=== PATIENT | male | born 1960 | race Two or more races ===

== ENCOUNTER 2021-01-25 14:05 | Inpatient (IN) | payer MEDICAID, OTHER ==
[~2021-01-25] VITALS: Ht 182.9 cm; Wt 142.0 kg
[2021-01-25] MEDS ORDERED: ALBUTEROL SULF 2.5 MG/0.5ML(0.5%) NEB SOLN NEB ONE (14:45)
[2021-01-25] MEDS ORDERED: methylPREDNISolone SOD SUCC 125 MG/2 ML VL IV ONE (14:45)
[2021-01-25] MEDS ORDERED: IPRATROPIUM BROM 0.5 MG/2.5ML INH SOL NEB ONE (14:45)
[2021-01-25] MEDS ORDERED: cefTRIAXone 1GM/50ML D5W 50 ML IV ONE ×2 (15:00→19:00)
[2021-01-25] MEDS ORDERED: ACETAMINOPHEN 500 MG TAB PO ONE (15:45)
[2021-01-25 16:20] LABS: Basophils # (auto) 0 10 ^3/uL (0-0.2); Basophils % (auto) 0.2 % (0.0-2.0); Eosinophils # (auto) 0 10 ^3/uL (0-0.8); Hematocrit 45.6 % (41.0-53.0); Lymphocytes # (auto) 0.9 10 ^3/uL (0.4-5.4); Mean Corpuscular Hemoglobin 29.9 pg (28.0-32.0); Mean Corpuscular Hgb Conc. 35.1 g/dL (32.0-36.0); Monocytes # (auto) 0.7 10 ^3/uL (0-1.3); Monocytes % (auto) 13.5 % (0.0-12.0); Neutrophils # (auto) 3.2 10 ^3/uL (1.6-8.6); Neutrophils % (auto) 67.3 % (37.0-80.0); Nucleated Red Blood Cells % 0.1 %; Red Blood Cells 5.36 10^6/uL (4.5-5.90); Red Cell Distribution Width 13.6 % (11.8-14.3); White Blood Cell 4.8 10^3/uL (4.4-10.8)
[2021-01-25 17:07] LABS: Albumin 3.1 g/dL (3.4-5.0); Anion Gap 10 (5-15); Blood Urea Nitrogen 22 mg/dL (7-18); Calcium 7.5 mg/dL (8.5-10.1); Carbon Dioxide 20 mmol/L (21-32); Chloride 100 mmol/L (98-107); Glucose 146 mg/dL (74-106); Sodium 130 mmol/L (136-145)
[2021-01-25 17:15] LABS: Alanine Aminotransferase 28 U/L (16-61); Alkaline Phosphatase 54 U/L (45-117); Aspartate Aminotransferase 32 U/L (15-37); BUN/Creatinine Ratio 15.1; Bilirubin, Total 0.6 mg/dL (0.2-1.0); CRP High Sensitivity 5.58 mg/dL (< 0.3); GFR African American 64 mL/min; GFR Non-African American 53 mL/min; Total Protein 6.9 g/dL (6.4-8.2)
[2021-01-25] MEDS ORDERED: MORPHINE SULF INJ 2 MG/ML SYRINGE 1ML IV PRN (18:30)
[2021-01-25] MEDS ORDERED: NITROGLYCERIN 0.4 MG SL TAB SL PRN (18:30)
[2021-01-25] MEDS ORDERED: ACETAMINOPHEN 500 MG TAB PO PRN (19:00)
[2021-01-25] MEDS ORDERED: LACTULOSE 20Gm/30ML SOLN PO PRN (19:00)
[2021-01-25] MEDS ORDERED: DEXTROSE (50%) 50ML SYRG IV PRN (19:00)
[2021-01-25] MEDS ORDERED: REMDESIVIR PER PHARMACY 0 ML IV SCH (19:00)
[2021-01-25] MEDS ORDERED: diphenhdrAMINE HCL 50 MG/1 ML VL IV PRN (19:00)
[2021-01-25] MEDS ORDERED: ONDANSETRON HCL 4 MG/2 ML VIAL IV PRN (19:00)
[2021-01-25] MEDS ORDERED: SODIUM CHLORIDE 0.9% 1,000 ML IV ONE (19:15)
[2021-01-25 20:18] VITALS: BP 161/94
[2021-01-25] MEDS ORDERED: REMDESIVIR 200 MG in NS 210ml LOADING DOSE ADULT IV ONE (20:30)
[2021-01-25] MEDS: ALBUTEROL SULF HFA 90MCG INH 200DOSE IN PRN (22:13)
[2021-01-25] MEDS: IPRATROPIUM BROMIDE HFA AER IN SCH (22:13)
[2021-01-25] MEDS: BUDESONIDE (INHALATION) 180 MCG IH IN SCH (22:13)
[2021-01-25] MEDS: SODIUM CHLOR 0.9% PF (SALINE LOCK) 10ML VIAL/SYR IV SCH (22:15)
[2021-01-25] MEDS: ENOXAPARIN SOD 40 MG/0.4 ML SYRINGE SC SCH (22:27)
[2021-01-25] MEDS: FAMOTIDINE 20 MG TAB PO SCH (22:27)
[2021-01-25] MEDS: FLORASTOR (S. BOULARDII) 250 MG CAP PO SCH (22:27)
[2021-01-25 22:30] VITALS: BP 117/86
[2021-01-25] MEDS: ACCU-CHEK COMFORT CURVE STRIP VI SCH (23:12)
[2021-01-26] VITALS (9 sets, daily range): BP systolic 111–150; BP diastolic 53–78
[2021-01-26 04:11] LABS: Urine Bacteria NONE SEEN /hpf (None Seen); Urine Blood Negative /uL (Negative); Urine Mucus FEW (None Seen); Urine Specific Gravity 1.018 (1.001-1.035); Urine WBC <1 /hpf (0 - 3)
[2021-01-26] MEDS: ALBUTEROL SULF HFA 90MCG INH 200DOSE IN PRN ×2 (06:00→11:21)
[2021-01-26] MEDS: IPRATROPIUM BROMIDE HFA AER IN SCH ×4 (06:00→23:54)
[2021-01-26] MEDS: BUDESONIDE (INHALATION) 180 MCG IH IN SCH ×2 (06:00→22:00)
[2021-01-26] MEDS ORDERED: IVERMECTIN 3 MG TAB PO ONE (07:00)
[2021-01-26] MEDS: SODIUM CHLOR 0.9% PF (SALINE LOCK) 10ML VIAL/SYR IV SCH ×3 (07:10→20:17)
[2021-01-26] MEDS: ACCU-CHEK COMFORT CURVE STRIP VI SCH ×4 (07:11→20:18)
[2021-01-26 07:31] LABS: Basophils # (auto) 0 10 ^3/uL (0-0.2); Basophils % (auto) 0.1 % (0.0-2.0); Eosinophils # (auto) 0 10 ^3/uL (0-0.8); Hemoglobin 15.9 g/dL (13.5-17.5); Lymphocytes # (auto) 0.8 10 ^3/uL (0.4-5.4); Lymphocytes % (auto) 12.7 % (10.0-50.0); Mean Corpuscular Hemoglobin 30.3 pg (28.0-32.0); Mean Corpuscular Hgb Conc. 35.5 g/dL (32.0-36.0); Mean Corpuscular Volume 85.4 fL (80.0-100.0); Monocytes # (auto) 0.8 10 ^3/uL (0-1.3); Monocytes % (auto) 12.8 % (0.0-12.0); Neutrophils # (auto) 4.6 10 ^3/uL (1.6-8.6); Neutrophils % (auto) 74.4 % (37.0-80.0); Nucleated Red Blood Cells % 0.1 %; Red Blood Cells 5.27 10^6/uL (4.5-5.90); Red Cell Distribution Width 13.5 % (11.8-14.3); White Blood Cell 6.2 10^3/uL (4.4-10.8)
[2021-01-26 07:52] LABS: Potassium 4.5 mmol/L (3.5-5.1)
[2021-01-26 08:02] LABS: BUN/Creatinine Ratio 16.5; Bilirubin, Total 0.4 mg/dL (0.2-1.0); Calcium 8.2 mg/dL (8.5-10.1); Total Protein 6.8 g/dL (6.4-8.2)
[2021-01-26] MEDS: cefTRIAXone 1GM/50ML D5W 50 ML IV SCH ×2 (10:55→12:07)
[2021-01-26] MEDS: DexAMETHasone SOD PHOS 10MG/1ML VIAL INJ IV SCH (10:55)
[2021-01-26] MEDS: AZITHROMYCIN 500MG/ 250ML 250 ML IV SCH (10:56)
[2021-01-26] MEDS: ZINC SULFATE 220mg CAP or TAB PO SCH (10:57)
[2021-01-26] MEDS: ASCORBIC ACID 1,000 MG TAB PO SCH (10:57)
[2021-01-26] MEDS: FLORASTOR (S. BOULARDII) 250 MG CAP PO SCH ×2 (10:57→20:17)
[2021-01-26] MEDS: FAMOTIDINE 20 MG TAB PO SCH ×2 (10:57→20:18)
[2021-01-26] MEDS: ENOXAPARIN SOD 40 MG/0.4 ML SYRINGE SC SCH ×2 (10:58→20:18)
[2021-01-26] MEDS: CHOLECALCIFEROL (VITD3) 2,000 UNIT CAP/TAB PO SCH (10:58)
[2021-01-26] MEDS ORDERED: DEXTROSE (50%) 50ML SYRG IV PRN (11:00)
[2021-01-26] MEDS: InsuLIN REG 1unit/0.01ml Soln (100units/ml) SC SCH ×3 (12:25→20:22)
[2021-01-26] MEDS: REMDESIVIR 100mg 100 MG in SODIUM CHL 0.9% 230 ML IV SCH (15:21)
[2021-01-26] MEDS: traMADol HCL 50 MG TAB PO PRN (15:22)
[2021-01-26] MEDS: TEMAZEPAM 15 MG CAP PO PRN (20:18)
[2021-01-26] MEDS: MORPHINE SULF INJ 2 MG/ML SYRINGE 1ML IV PRN (21:36)
[2021-01-27 05:00] VITALS: BP 136/89
[2021-01-27] MEDS: SODIUM CHLOR 0.9% PF (SALINE LOCK) 10ML VIAL/SYR IV SCH ×3 (05:40→22:51)
[2021-01-27] MEDS: MORPHINE SULF INJ 2 MG/ML SYRINGE 1ML IV PRN (05:41)
[2021-01-27 06:33] LABS: Basophils # (auto) 0 10 ^3/uL (0-0.2); Basophils % (auto) 0.2 % (0.0-2.0); Eosinophils # (auto) 0 10 ^3/uL (0-0.8); Hematocrit 44.4 % (41.0-53.0); Hemoglobin 15.8 g/dL (13.5-17.5); Lymphocytes # (auto) 1.2 10 ^3/uL (0.4-5.4); Lymphocytes % (auto) 18.1 % (10.0-50.0); Mean Corpuscular Hemoglobin 30.3 pg (28.0-32.0); Mean Corpuscular Hgb Conc. 35.5 g/dL (32.0-36.0); Mean Corpuscular Volume 85.5 fL (80.0-100.0); Monocytes # (auto) 0.7 10 ^3/uL (0-1.3); Monocytes % (auto) 11.1 % (0.0-12.0); Neutrophils # (auto) 4.6 10 ^3/uL (1.6-8.6); Neutrophils % (auto) 70.6 % (37.0-80.0); Nucleated Red Blood Cells % 0.3 %; Red Blood Cells 5.19 10^6/uL (4.5-5.90); Red Cell Distribution Width 13.7 % (11.8-14.3); White Blood Cell 6.6 10^3/uL (4.4-10.8)
[2021-01-27] MEDS: ACCU-CHEK COMFORT CURVE STRIP VI SCH ×4 (06:33→22:51)
[2021-01-27] MEDS: InsuLIN REG 1unit/0.01ml Soln (100units/ml) SC SCH ×4 (06:34→22:52)
[2021-01-27 06:53] LABS: Potassium 4.2 mmol/L (3.5-5.1)
[2021-01-27 07:00] LABS: Albumin 2.8 g/dL (3.4-5.0); BUN/Creatinine Ratio 17.3; Bilirubin, Total 0.6 mg/dL (0.2-1.0); Calcium 7.8 mg/dL (8.5-10.1); Total Protein 6.9 g/dL (6.4-8.2)
[2021-01-27] MEDS: IPRATROPIUM BROMIDE HFA AER IN SCH ×4 (07:03→23:02)
[2021-01-27] MEDS: BUDESONIDE (INHALATION) 180 MCG IH IN SCH ×2 (07:03→23:00)
[2021-01-27] MEDS: ALBUTEROL SULF HFA 90MCG INH 200DOSE IN PRN ×3 (07:03→23:00)
[2021-01-27 08:00] VITALS: BP 141/69
[2021-01-27] MEDS: cefTRIAXone 1GM/50ML D5W 50 ML IV SCH (09:20)
[2021-01-27] MEDS: DexAMETHasone SOD PHOS 10MG/1ML VIAL INJ IV SCH (11:34)
[2021-01-27] MEDS: AZITHROMYCIN 500MG/ 250ML 250 ML IV SCH (11:34)
[2021-01-27] MEDS: ZINC SULFATE 220mg CAP or TAB PO SCH (11:34)
[2021-01-27] MEDS: CHOLECALCIFEROL (VITD3) 2,000 UNIT CAP/TAB PO SCH (11:35)
[2021-01-27] MEDS: ASCORBIC ACID 1,000 MG TAB PO SCH (11:35)
[2021-01-27] MEDS: FAMOTIDINE 20 MG TAB PO SCH ×2 (11:35→22:51)
[2021-01-27] MEDS: FLORASTOR (S. BOULARDII) 250 MG CAP PO SCH ×2 (11:35→22:51)
[2021-01-27] MEDS: ENOXAPARIN SOD 40 MG/0.4 ML SYRINGE SC SCH ×2 (11:35→22:51)
[2021-01-27 12:00] VITALS: BP 124/68
[2021-01-27] MEDS: REMDESIVIR 100mg 100 MG in SODIUM CHL 0.9% 230 ML IV SCH (15:08)
[2021-01-27 16:00] VITALS: BP 124/75
[2021-01-27 22:00] VITALS: BP 132/86
[2021-01-28 05:00] VITALS: BP 128/50
[2021-01-28] MEDS: IPRATROPIUM BROMIDE HFA AER IN SCH ×4 (06:17→23:43)
[2021-01-28] MEDS: ALBUTEROL SULF HFA 90MCG INH 200DOSE IN PRN ×3 (06:17→23:44)
[2021-01-28] MEDS: BUDESONIDE (INHALATION) 180 MCG IH IN SCH ×2 (06:17→23:43)
[2021-01-28 06:26] LABS: Basophils # (auto) 0 10 ^3/uL (0-0.2); Basophils % (auto) 0.2 % (0.0-2.0); Eosinophils # (auto) 0 10 ^3/uL (0-0.8); Hematocrit 45.7 % (41.0-53.0); Lymphocytes # (auto) 0.9 10 ^3/uL (0.4-5.4); Lymphocytes % (auto) 20.2 % (10.0-50.0); Mean Corpuscular Hemoglobin 29.9 pg (28.0-32.0); Mean Corpuscular Volume 85.6 fL (80.0-100.0); Monocytes # (auto) 0.5 10 ^3/uL (0-1.3); Monocytes % (auto) 11.9 % (0.0-12.0); Neutrophils % (auto) 67.7 % (37.0-80.0); Nucleated Red Blood Cells % 0.2 %; Red Blood Cells 5.34 10^6/uL (4.5-5.90); Red Cell Distribution Width 13.7 % (11.8-14.3); White Blood Cell 4.4 10^3/uL (4.4-10.8)
[2021-01-28] MEDS: SODIUM CHLOR 0.9% PF (SALINE LOCK) 10ML VIAL/SYR IV SCH ×3 (06:30→22:18)
[2021-01-28] MEDS: ACCU-CHEK COMFORT CURVE STRIP VI SCH ×4 (06:30→22:20)
[2021-01-28] MEDS: InsuLIN REG 1unit/0.01ml Soln (100units/ml) SC SCH ×4 (06:41→22:24)
[2021-01-28 06:44] LABS: Potassium 4.1 mmol/L (3.5-5.1)
[2021-01-28 06:52] LABS: Albumin 2.6 g/dL (3.4-5.0); BUN/Creatinine Ratio 19.8; Bilirubin, Total 0.4 mg/dL (0.2-1.0); Calcium 8.1 mg/dL (8.5-10.1); Total Protein 6.6 g/dL (6.4-8.2)
[2021-01-28] MEDS: cefTRIAXone 1GM/50ML D5W 50 ML IV SCH (08:49)
[2021-01-28 09:00] VITALS: BP 120/85
[2021-01-28] MEDS: FAMOTIDINE 20 MG TAB PO SCH ×2 (10:05→22:19)
[2021-01-28] MEDS: ZINC SULFATE 220mg CAP or TAB PO SCH (10:05)
[2021-01-28] MEDS: AZITHROMYCIN 500MG/ 250ML 250 ML IV SCH (10:05)
[2021-01-28] MEDS: CHOLECALCIFEROL (VITD3) 2,000 UNIT CAP/TAB PO SCH (10:05)
[2021-01-28] MEDS: FLORASTOR (S. BOULARDII) 250 MG CAP PO SCH ×2 (10:06→22:19)
[2021-01-28] MEDS: DexAMETHasone SOD PHOS 10MG/1ML VIAL INJ IV SCH (10:06)
[2021-01-28] MEDS: ENOXAPARIN SOD 40 MG/0.4 ML SYRINGE SC SCH ×2 (10:06→22:20)
[2021-01-28] MEDS: ASCORBIC ACID 1,000 MG TAB PO SCH (12:28)
[2021-01-28 13:00] VITALS: BP 137/81
[2021-01-28] MEDS: REMDESIVIR 100mg 100 MG in SODIUM CHL 0.9% 230 ML IV SCH (14:55)
[2021-01-28 17:00] VITALS: BP 147/82
[2021-01-28 22:00] VITALS: BP 158/90
[2021-01-29 01:56] VITALS: BP 158/90
[2021-01-29 05:27] VITALS: BP 154/87
[2021-01-29] MEDS: SODIUM CHLOR 0.9% PF (SALINE LOCK) 10ML VIAL/SYR IV SCH ×3 (06:31→21:53)
[2021-01-29] MEDS: ACCU-CHEK COMFORT CURVE STRIP VI SCH ×4 (06:31→21:54)
[2021-01-29] MEDS: InsuLIN REG 1unit/0.01ml Soln (100units/ml) SC SCH ×4 (06:35→21:54)
[2021-01-29 07:08] LABS: Basophils # (auto) 0 10 ^3/uL (0-0.2); Basophils % (auto) 0.1 % (0.0-2.0); Eosinophils # (auto) 0 10 ^3/uL (0-0.8); Eosinophils % (auto) 0.1 % (0.0-7.0); Hematocrit 45.8 % (41.0-53.0); Hemoglobin 15.9 g/dL (13.5-17.5); Lymphocytes % (auto) 11.4 % (10.0-50.0); Mean Corpuscular Hemoglobin 29.8 pg (28.0-32.0); Mean Corpuscular Hgb Conc. 34.9 g/dL (32.0-36.0); Mean Corpuscular Volume 85.4 fL (80.0-100.0); Monocytes # (auto) 0.8 10 ^3/uL (0-1.3); Monocytes % (auto) 9.6 % (0.0-12.0); Neutrophils # (auto) 6.9 10 ^3/uL (1.6-8.6); Neutrophils % (auto) 78.8 % (37.0-80.0); Nucleated Red Blood Cells % 0.1 %; Red Blood Cells 5.36 10^6/uL (4.5-5.90); Red Cell Distribution Width 13.3 % (11.8-14.3); White Blood Cell 8.7 10^3/uL (4.4-10.8)
[2021-01-29 07:23] LABS: Calcium 8.6 mg/dL (8.5-10.1); Potassium 4.2 mmol/L (3.5-5.1)
[2021-01-29 07:30] LABS: Albumin 2.6 g/dL (3.4-5.0); BUN/Creatinine Ratio 22.4; Bilirubin, Total 0.4 mg/dL (0.2-1.0); Total Protein 6.8 g/dL (6.4-8.2)
[2021-01-29] MEDS: BUDESONIDE (INHALATION) 180 MCG IH IN SCH ×2 (08:18→22:00)
[2021-01-29] MEDS: IPRATROPIUM BROMIDE HFA AER IN SCH ×3 (08:18→22:00)
[2021-01-29] MEDS: ALBUTEROL SULF HFA 90MCG INH 200DOSE IN PRN ×2 (08:19→22:45)
[2021-01-29 09:00] VITALS: BP 113/69
[2021-01-29] MEDS: FAMOTIDINE 20 MG TAB PO SCH ×2 (10:39→21:53)
[2021-01-29] MEDS: cefTRIAXone 1GM/50ML D5W 50 ML IV SCH (10:39)
[2021-01-29] MEDS: ZINC SULFATE 220mg CAP or TAB PO SCH (10:39)
[2021-01-29] MEDS: FLORASTOR (S. BOULARDII) 250 MG CAP PO SCH ×2 (10:39→21:53)
[2021-01-29] MEDS: AZITHROMYCIN 500MG/ 250ML 250 ML IV SCH (10:39)
[2021-01-29] MEDS: DexAMETHasone SOD PHOS 10MG/1ML VIAL INJ IV SCH (10:39)
[2021-01-29] MEDS: CHOLECALCIFEROL (VITD3) 2,000 UNIT CAP/TAB PO SCH (10:40)
[2021-01-29] MEDS: ASCORBIC ACID 1,000 MG TAB PO SCH (10:40)
[2021-01-29] MEDS: ENOXAPARIN SOD 40 MG/0.4 ML SYRINGE SC SCH ×2 (10:40→21:54)
[2021-01-29] MEDS ORDERED: ASCO10003 PO (11:54)
[2021-01-29] MEDS ORDERED: DEXA4TAB90 PO (11:54)
[2021-01-29] MEDS ORDERED: CHOL1CAP47 PO (11:54)
[2021-01-29] MEDS ORDERED: LEVO750T64 PO (11:54)
[2021-01-29 13:00] VITALS: BP 128/82
[2021-01-29] MEDS: REMDESIVIR 100mg 100 MG in SODIUM CHL 0.9% 230 ML IV SCH (15:55)
[2021-01-29 17:00] VITALS: BP 124/81
[2021-01-29 22:00] VITALS: BP 132/84
[2021-01-30 05:00] VITALS: BP 141/77
[2021-01-30] MEDS: SODIUM CHLOR 0.9% PF (SALINE LOCK) 10ML VIAL/SYR IV SCH ×3 (06:39→22:11)
[2021-01-30] MEDS: ACCU-CHEK COMFORT CURVE STRIP VI SCH ×4 (06:39→22:12)
[2021-01-30] MEDS: InsuLIN REG 1unit/0.01ml Soln (100units/ml) SC SCH ×4 (06:40→22:09)
[2021-01-30] MEDS: BUDESONIDE (INHALATION) 180 MCG IH IN SCH ×2 (07:25→23:15)
[2021-01-30] MEDS: IPRATROPIUM BROMIDE HFA AER IN SCH ×3 (07:26→23:15)
[2021-01-30 09:00] VITALS: BP 162/81
[2021-01-30] MEDS: DexAMETHasone SOD PHOS 10MG/1ML VIAL INJ IV SCH (10:59)
[2021-01-30] MEDS: FLORASTOR (S. BOULARDII) 250 MG CAP PO SCH ×2 (11:00→22:11)
[2021-01-30] MEDS: FAMOTIDINE 20 MG TAB PO SCH ×2 (11:00→22:11)
[2021-01-30] MEDS: CHOLECALCIFEROL (VITD3) 2,000 UNIT CAP/TAB PO SCH (11:00)
[2021-01-30] MEDS: ZINC SULFATE 220mg CAP or TAB PO SCH (11:00)
[2021-01-30] MEDS: ASCORBIC ACID 1,000 MG TAB PO SCH (11:00)
[2021-01-30] MEDS: ENOXAPARIN SOD 40 MG/0.4 ML SYRINGE SC SCH ×2 (11:00→22:12)
[2021-01-30 12:24] VITALS: BP 150/95
[2021-01-30 17:00] VITALS: BP 124/78
[2021-01-30 22:12] VITALS: BP 157/82
[2021-01-30] MEDS: ALBUTEROL SULF HFA 90MCG INH 200DOSE IN PRN (23:15)
[2021-01-31 05:29] VITALS: BP 152/74
[2021-01-31] MEDS: SODIUM CHLOR 0.9% PF (SALINE LOCK) 10ML VIAL/SYR IV SCH ×3 (06:36→21:31)
[2021-01-31] MEDS: ACCU-CHEK COMFORT CURVE STRIP VI SCH ×5 (06:36→21:29)
[2021-01-31] MEDS: InsuLIN REG 1unit/0.01ml Soln (100units/ml) SC SCH ×5 (06:38→21:26)
[2021-01-31] MEDS: ALBUTEROL SULF HFA 90MCG INH 200DOSE IN PRN ×2 (08:03→20:59)
[2021-01-31] MEDS: BUDESONIDE (INHALATION) 180 MCG IH IN SCH ×2 (08:03→19:48)
[2021-01-31] MEDS: IPRATROPIUM BROMIDE HFA AER IN SCH ×4 (08:03→23:07)
[2021-01-31 09:00] VITALS: BP 140/90
[2021-01-31] MEDS: FLORASTOR (S. BOULARDII) 250 MG CAP PO SCH ×2 (10:11→21:30)
[2021-01-31] MEDS: ZINC SULFATE 220mg CAP or TAB PO SCH (10:11)
[2021-01-31] MEDS: CHOLECALCIFEROL (VITD3) 2,000 UNIT CAP/TAB PO SCH (10:11)
[2021-01-31] MEDS: ASCORBIC ACID 1,000 MG TAB PO SCH (10:11)
[2021-01-31] MEDS: ENOXAPARIN SOD 40 MG/0.4 ML SYRINGE SC SCH ×2 (10:11→21:29)
[2021-01-31] MEDS: FAMOTIDINE 20 MG TAB PO SCH ×2 (10:11→21:30)
[2021-01-31] MEDS: DexAMETHasone SOD PHOS 10MG/1ML VIAL INJ IV SCH (10:13)
[2021-01-31 12:56] VITALS: BP 140/83
[2021-01-31 17:00] VITALS: BP 123/88
[2021-01-31] MEDS: TEMAZEPAM 15 MG CAP PO PRN (19:29)
[2021-01-31 21:16] VITALS: BP 123/88
[2021-01-31] MEDS: traMADol HCL 50 MG TAB PO PRN (21:31)
[2021-01-31 22:26] VITALS: BP 140/74
[2021-02-01] MEDS: InsuLIN REG 1unit/0.01ml Soln (100units/ml) SC SCH ×4 (05:10→21:51)
[2021-02-01] MEDS: ACCU-CHEK COMFORT CURVE STRIP VI SCH ×4 (05:11→21:37)
[2021-02-01] MEDS: SODIUM CHLOR 0.9% PF (SALINE LOCK) 10ML VIAL/SYR IV SCH ×3 (05:12→21:35)
[2021-02-01 05:18] VITALS: BP 157/77
[2021-02-01] MEDS: IPRATROPIUM BROMIDE HFA AER IN SCH ×4 (07:50→22:00)
[2021-02-01] MEDS: BUDESONIDE (INHALATION) 180 MCG IH IN SCH ×2 (07:50→20:41)
[2021-02-01] MEDS: ALBUTEROL SULF HFA 90MCG INH 200DOSE IN PRN ×2 (07:50→20:41)
[2021-02-01 09:00] VITALS: BP 144/96
[2021-02-01] MEDS: DexAMETHasone SOD PHOS 10MG/1ML VIAL INJ IV SCH (10:02)
[2021-02-01] MEDS: ENOXAPARIN SOD 40 MG/0.4 ML SYRINGE SC SCH ×2 (10:03→21:36)
[2021-02-01] MEDS: CHOLECALCIFEROL (VITD3) 2,000 UNIT CAP/TAB PO SCH (10:03)
[2021-02-01] MEDS: ASCORBIC ACID 1,000 MG TAB PO SCH (10:03)
[2021-02-01] MEDS: FAMOTIDINE 20 MG TAB PO SCH ×2 (10:03→21:36)
[2021-02-01] MEDS: FLORASTOR (S. BOULARDII) 250 MG CAP PO SCH ×2 (10:03→21:36)
[2021-02-01] MEDS: ZINC SULFATE 220mg CAP or TAB PO SCH (10:03)
[2021-02-01 17:00] VITALS: BP 130/76
[2021-02-01] MEDS: MORPHINE SULF INJ 2 MG/ML SYRINGE 1ML IV PRN (21:17)
[2021-02-01 22:00] VITALS: BP 140/103
[2021-02-02] MEDS: TEMAZEPAM 15 MG CAP PO PRN ×2 (01:18→23:19)
[2021-02-02] MEDS: MORPHINE SULF INJ 2 MG/ML SYRINGE 1ML IV PRN ×2 (03:51→20:17)
[2021-02-02 05:00] VITALS: BP 140/80
[2021-02-02] MEDS: SODIUM CHLOR 0.9% PF (SALINE LOCK) 10ML VIAL/SYR IV SCH ×3 (06:17→21:37)
[2021-02-02] MEDS: ACCU-CHEK COMFORT CURVE STRIP VI SCH ×4 (06:18→21:38)
[2021-02-02] MEDS: InsuLIN REG 1unit/0.01ml Soln (100units/ml) SC SCH ×4 (06:37→21:50)
[2021-02-02] MEDS: IPRATROPIUM BROMIDE HFA AER IN SCH ×4 (07:45→22:54)
[2021-02-02] MEDS: BUDESONIDE (INHALATION) 180 MCG IH IN SCH ×2 (07:45→19:42)
[2021-02-02] MEDS: metFORMIN HYDROCHLORIDE 500 MG TAB PO SCH ×2 (08:00→18:00)
[2021-02-02 09:00] VITALS: BP 132/72
[2021-02-02] MEDS: DexAMETHasone SOD PHOS 10MG/1ML VIAL INJ IV SCH (09:49)
[2021-02-02] MEDS: ZINC SULFATE 220mg CAP or TAB PO SCH (09:49)
[2021-02-02] MEDS: ASCORBIC ACID 1,000 MG TAB PO SCH (09:50)
[2021-02-02] MEDS: ENOXAPARIN SOD 40 MG/0.4 ML SYRINGE SC SCH ×2 (09:50→21:38)
[2021-02-02] MEDS: CHOLECALCIFEROL (VITD3) 2,000 UNIT CAP/TAB PO SCH (09:50)
[2021-02-02] MEDS: LOSARTAN POTASSIUM 25 MG TAB PO SCH (09:50)
[2021-02-02] MEDS: FAMOTIDINE 20 MG TAB PO SCH ×2 (09:50→21:37)
[2021-02-02 13:00] VITALS: BP 114/58
[2021-02-02 17:00] VITALS: BP 135/88
[2021-02-02] MEDS: ALBUTEROL SULF HFA 90MCG INH 200DOSE IN PRN (19:42)
[2021-02-02 22:00] VITALS: BP 140/79
[2021-02-02] MEDS ORDERED: DEXTROSE (50%) 50ML SYRG IV PRN (23:45)
[2021-02-02] MEDS: INSULIN LANTUS (GLARGINE) 1 /0.01ml (100units/ml) SC SCH (23:58)
[2021-02-03] MEDS: SODIUM CHLOR 0.9% PF (SALINE LOCK) 10ML VIAL/SYR IV SCH ×3 (05:26→21:27)
[2021-02-03] MEDS: ACCU-CHEK COMFORT CURVE STRIP VI SCH ×4 (06:12→21:29)
[2021-02-03] MEDS: InsuLIN REG 1unit/0.01ml Soln (100units/ml) SC SCH ×4 (06:17→21:28)
[2021-02-03] MEDS ORDERED: metFORMIN HYDROCHLORIDE 500 MG TAB PO SCH (08:00)
[2021-02-03] MEDS: BUDESONIDE (INHALATION) 180 MCG IH IN SCH ×2 (08:40→22:46)
[2021-02-03] MEDS: IPRATROPIUM BROMIDE HFA AER IN SCH ×4 (08:40→22:46)
[2021-02-03] MEDS: ALBUTEROL SULF HFA 90MCG INH 200DOSE IN PRN ×2 (08:40→22:46)
[2021-02-03 09:00] VITALS: BP 155/85
[2021-02-03] MEDS: LOSARTAN POTASSIUM 25 MG TAB PO SCH (09:38)
[2021-02-03] MEDS: ZINC SULFATE 220mg CAP or TAB PO SCH (09:38)
[2021-02-03] MEDS: ASCORBIC ACID 1,000 MG TAB PO SCH (09:38)
[2021-02-03] MEDS: FAMOTIDINE 20 MG TAB PO SCH ×2 (09:38→21:27)
[2021-02-03] MEDS: DexAMETHasone SOD PHOS 10MG/1ML VIAL INJ IV SCH (09:38)
[2021-02-03] MEDS: ENOXAPARIN SOD 40 MG/0.4 ML SYRINGE SC SCH ×2 (09:39→21:29)
[2021-02-03] MEDS: CHOLECALCIFEROL (VITD3) 2,000 UNIT CAP/TAB PO SCH (09:39)
[2021-02-03] MEDS: INSULIN LANTUS (GLARGINE) 1 /0.01ml (100units/ml) SC SCH ×2 (09:41→21:28)
[2021-02-03 13:00] VITALS: BP 139/74
[2021-02-03 17:00] VITALS: BP 119/70
[2021-02-03 21:00] VITALS: BP 142/86
[2021-02-03] MEDS: MORPHINE SULF INJ 2 MG/ML SYRINGE 1ML IV PRN (21:30)
[2021-02-03] MEDS: TEMAZEPAM 15 MG CAP PO PRN (22:29)
[2021-02-03 23:52] VITALS: BP 119/70
[2021-02-04 05:00] VITALS: BP 143/83
[2021-02-04] MEDS: ACCU-CHEK COMFORT CURVE STRIP VI SCH ×4 (06:35→22:00)
[2021-02-04] MEDS: SODIUM CHLOR 0.9% PF (SALINE LOCK) 10ML VIAL/SYR IV SCH ×3 (06:35→21:56)
[2021-02-04] MEDS: InsuLIN REG 1unit/0.01ml Soln (100units/ml) SC SCH ×4 (06:46→21:58)
[2021-02-04 08:58] VITALS: BP 134/89
[2021-02-04] MEDS: CHOLECALCIFEROL (VITD3) 2,000 UNIT CAP/TAB PO SCH (09:09)
[2021-02-04] MEDS: FAMOTIDINE 20 MG TAB PO SCH ×2 (09:09→21:57)
[2021-02-04] MEDS: ASCORBIC ACID 1,000 MG TAB PO SCH (09:09)
[2021-02-04] MEDS: ZINC SULFATE 220mg CAP or TAB PO SCH (09:09)
[2021-02-04] MEDS: DexAMETHasone SOD PHOS 10MG/1ML VIAL INJ IV SCH (09:09)
[2021-02-04] MEDS: LOSARTAN POTASSIUM 25 MG TAB PO SCH (09:09)
[2021-02-04] MEDS: ENOXAPARIN SOD 40 MG/0.4 ML SYRINGE SC SCH ×2 (09:10→21:59)
[2021-02-04] MEDS: INSULIN LANTUS (GLARGINE) 1 /0.01ml (100units/ml) SC SCH ×2 (09:40→21:59)
[2021-02-04] MEDS: IPRATROPIUM BROMIDE HFA AER IN SCH ×4 (11:51→23:47)
[2021-02-04] MEDS: BUDESONIDE (INHALATION) 180 MCG IH IN SCH ×2 (11:51→20:00)
[2021-02-04 12:59] VITALS: BP 130/78
[2021-02-04 17:00] VITALS: BP 156/84
[2021-02-04] MEDS: ALBUTEROL SULF HFA 90MCG INH 200DOSE IN PRN (20:05)
[2021-02-04 22:00] VITALS: BP 119/75
[2021-02-04] MEDS: MORPHINE SULF INJ 2 MG/ML SYRINGE 1ML IV PRN (22:00)
[2021-02-04] MEDS: TEMAZEPAM 15 MG CAP PO PRN (22:00)
[2021-02-05 05:00] VITALS: BP 111/72
[2021-02-05] MEDS: SODIUM CHLOR 0.9% PF (SALINE LOCK) 10ML VIAL/SYR IV SCH ×2 (06:31→15:59)
[2021-02-05] MEDS: ACCU-CHEK COMFORT CURVE STRIP VI SCH ×3 (06:31→17:38)
[2021-02-05] MEDS: InsuLIN REG 1unit/0.01ml Soln (100units/ml) SC SCH ×3 (06:32→17:39)
[2021-02-05] MEDS: ALBUTEROL SULF HFA 90MCG INH 200DOSE IN PRN ×2 (07:39→19:03)
[2021-02-05] MEDS: BUDESONIDE (INHALATION) 180 MCG IH IN SCH ×2 (07:40→19:03)
[2021-02-05 08:57] VITALS: BP 129/68
[2021-02-05] MEDS: IPRATROPIUM BROMIDE HFA AER IN SCH ×3 (09:52→19:03)
[2021-02-05] MEDS: ZINC SULFATE 220mg CAP or TAB PO SCH (10:34)
[2021-02-05] MEDS: LOSARTAN POTASSIUM 25 MG TAB PO SCH (10:34)
[2021-02-05] MEDS: FAMOTIDINE 20 MG TAB PO SCH (10:34)
[2021-02-05] MEDS: ASCORBIC ACID 1,000 MG TAB PO SCH (10:35)
[2021-02-05] MEDS: ENOXAPARIN SOD 40 MG/0.4 ML SYRINGE SC SCH (10:36)
[2021-02-05] MEDS: CHOLECALCIFEROL (VITD3) 2,000 UNIT CAP/TAB PO SCH (10:36)
[2021-02-05] MEDS: INSULIN LANTUS (GLARGINE) 1 /0.01ml (100units/ml) SC SCH (10:58)
[2021-02-05 13:00] VITALS: BP 137/81
[2021-02-05 17:00] VITALS: BP 139/72
== END 2021-02-05 19:13 | DRG 137 ==
LOC: ER 14:05 → EDBD 14:05 → TELE 18:26 → TELE-EAST 22:33 → EAST 02-01 14:22
PROVIDERS: ADMIT Internal Medicine; ATTEND Internal Medicine Pulmonary Disease
PROC: XW033E5 Introduction of Remdesivir Anti-infective into Peripheral Vein, Percutaneous Approach, New Technology Group 5 (ICD-10-PCS; 2021-01-25)
PROC: XW13325 Transfusion of Convalescent Plasma (Nonautologous) into Peripheral Vein, Percutaneous Approach, New Technology Group 5 (ICD-10-PCS; principal; 2021-01-26)
DX: U07.1 COVID-19 (principal); J96.01 Acute respiratory failure with hypoxia; J12.82 Pneumonia due to coronavirus disease 2019; N17.9 Acute kidney failure, unspecified; E87.1 Hypo-osmolality and hyponatremia; Z68.41 Body mass index [BMI] 40.0-44.9, adult; F12.90 Cannabis use, unspecified, uncomplicated; E66.01 Morbid (severe) obesity due to excess calories; R73.9 Hyperglycemia, unspecified; Z90.49 Acquired absence of other specified parts of digestive tract; Z79.899 Other long term (current) drug therapy
CPT/HCPCS: 36415; 36600; 71045; 80053; 81001; 82728; 82805; 82962; 83036; 83880; 84484; 85025; 85379; 86141; 86850; 86900; 86901; 87426; 93970; 94640; 96365; 96367; 96375; 97110; 97163; G0378; J0696; J1100; J1815; J2405

== ENCOUNTER 2021-02-08 12:08 | Inpatient (IN) | payer MEDICAID ==
[~2021-02-08] VITALS: Ht 185.4 cm; Wt 149.7 kg
[~2021-02-08 12:08] MED LIST: ASCO10003 PO; CHOL1CAP47 PO; DEXA4TAB90 PO; LEVO750T64 PO
[2021-02-08 13:58] LABS: Basophils # (auto) 0.1 10 ^3/uL (0-0.2); Basophils % (auto) 0.7 % (0.0-2.0); Eosinophils # (auto) 0.1 10 ^3/uL (0-0.8); Eosinophils % (auto) 1.2 % (0.0-7.0); Hematocrit 42.4 % (41.0-53.0); Hemoglobin 14.5 g/dL (13.5-17.5); Lymphocytes % (auto) 22.6 % (10.0-50.0); Mean Corpuscular Hemoglobin 29.7 pg (28.0-32.0); Mean Corpuscular Hgb Conc. 34.3 g/dL (32.0-36.0); Mean Corpuscular Volume 86.5 fL (80.0-100.0); Monocytes # (auto) 0.7 10 ^3/uL (0-1.3); Monocytes % (auto) 8.4 % (0.0-12.0); Neutrophils # (auto) 5.9 10 ^3/uL (1.6-8.6); Neutrophils % (auto) 67.1 % (37.0-80.0); Red Cell Distribution Width 13.8 % (11.8-14.3); White Blood Cell 8.8 10^3/uL (4.4-10.8)
[2021-02-08 14:39] LABS: Albumin 2.8 g/dL (3.4-5.0); BUN/Creatinine Ratio 23.7; Calcium 7.9 mg/dL (8.5-10.1); Potassium 4.5 mmol/L (3.5-5.1)
[2021-02-08 14:42] LABS: Bilirubin, Total 0.4 mg/dL (0.2-1.0); Total Protein 6.4 g/dL (6.4-8.2)
[2021-02-08] MEDS ORDERED: SODIUM CHLORIDE 0.9% 1,000 ML IV ONE (17:00)
[2021-02-08 17:12] LABS: Magnesium 2.1 mg/dL (1.6-2.6)
[2021-02-08] MEDS ORDERED: cefTRIAXone 1GM/50ML D5W 50 ML IV ONE (17:30)
[2021-02-08] MEDS ORDERED: FUROSEMIDE 40 MG/4 ML VIAL IV ONE (17:30)
[2021-02-08] MEDS ORDERED: SPIRONOLACTONE 25 MG TAB PO ONE (17:30)
[2021-02-08 18:16] LABS: INR 0.98 (0.9-1.15); Partial Thromboplastin Time 24.2 sec (23.6-33.0)
[2021-02-08] MEDS ORDERED: ALBUTEROL SULF 2.5 MG/0.5ML(0.5%) NEB SOLN ONE (19:14)
[2021-02-08] MEDS ORDERED: IPRATROPIUM BROM 0.5 MG/2.5ML INH SOL ONE (19:14)
[2021-02-08] MEDS ORDERED: ALBUTEROL SULF 2.5 MG/0.5ML(0.5%) NEB SOLN NEB ONE (19:15)
[2021-02-08] MEDS ORDERED: ONDANSETRON HCL 4 MG/2 ML VIAL IV PRN (19:15)
[2021-02-08] MEDS ORDERED: MORPHINE SULFATE INJECTION 2 MG/2 ML SYRG IV PRN ×2 (19:15)
[2021-02-08] MEDS ORDERED: ACETAMINOPHEN 500 MG TAB PO PRN (19:15)
[2021-02-08] MEDS ORDERED: HYDROcodone-ACET 5/325MG TAB PO PRN (19:15)
[2021-02-08] MEDS ORDERED: IPRATROPIUM BROM 0.5 MG/2.5ML INH SOL NEB ONE (19:15)
[2021-02-08] MEDS ORDERED: NITROGLYCERIN 0.4 MG SL TAB SL PRN (19:15)
[2021-02-08] MEDS ORDERED: LIDOCAINE 5% TOPICAL PATCH TOP ONE (22:30)
[2021-02-08] MEDS: ASCORBIC ACID 500 MG TAB PO SCH (23:44)
[2021-02-08 23:49] VITALS: BP 132/78
[2021-02-08] MEDS: methylPREDNISolone SOD SUCC 125 MG/2 ML VL IV SCH (23:56)
[2021-02-09] MEDS: PANTOPRAZOLE 40 MG TAB PO SCH (09:42)
[2021-02-09] MEDS: ZINC SULFATE 220mg CAP or TAB PO SCH (09:42)
[2021-02-09] MEDS: ASCORBIC ACID 500 MG TAB PO SCH ×2 (09:42→21:36)
[2021-02-09] MEDS: ENOXAPARIN SOD 40 MG/0.4 ML SYRINGE SC SCH (09:42)
[2021-02-09] MEDS: methylPREDNISolone SOD SUCC 125 MG/2 ML VL IV SCH ×2 (09:42→21:36)
[2021-02-09] MEDS: CHOLECALCIFEROL (VITD3) 2,000 UNIT CAP/TAB PO SCH (09:42)
[2021-02-09] MEDS: IPRATROPIUM BROM 0.5 MG/2.5ML INH SOL NEB SCH ×3 (14:51→18:52)
[2021-02-09] MEDS: ALBUTEROL SULF 2.5 MG/0.5ML(0.5%) NEB SOLN NEB SCH ×3 (14:51→18:52)
[2021-02-09 16:00] VITALS: BP 153/76
[2021-02-09 16:56] VITALS: BP 153/76
[2021-02-09 22:00] VITALS: BP 135/78
[2021-02-10 05:00] VITALS: BP 130/72
[2021-02-10] MEDS: IPRATROPIUM BROM 0.5 MG/2.5ML INH SOL NEB SCH ×3 (07:03→19:22)
[2021-02-10] MEDS: ALBUTEROL SULF 2.5 MG/0.5ML(0.5%) NEB SOLN NEB SCH ×3 (07:03→19:22)
[2021-02-10 09:00] VITALS: BP 134/88
[2021-02-10] MEDS: ZINC SULFATE 220mg CAP or TAB PO SCH (09:51)
[2021-02-10] MEDS: PANTOPRAZOLE 40 MG TAB PO SCH (09:51)
[2021-02-10] MEDS: ASCORBIC ACID 500 MG TAB PO SCH ×2 (09:52→22:23)
[2021-02-10] MEDS: DOXYCYCLINE 100 MG TAB/CAP PO SCH ×2 (09:52→22:23)
[2021-02-10] MEDS: CHOLECALCIFEROL (VITD3) 2,000 UNIT CAP/TAB PO SCH (09:52)
[2021-02-10] MEDS: ENOXAPARIN SOD 40 MG/0.4 ML SYRINGE SC SCH (09:52)
[2021-02-10] MEDS ORDERED: methylPREDNISolone SOD SUCC 40 MG/ML VL IV SCH (10:00)
[2021-02-10] MEDS ORDERED: FUROSEMIDE 20 MG/2 ML VIAL IV ONE (12:45)
[2021-02-10] MEDS ORDERED: POTASSIUM CHL 20 Meq TABLET PO ONE (12:45)
[2021-02-10 13:00] VITALS: BP 150/80
[2021-02-10 17:00] VITALS: BP 134/68
[2021-02-10 22:00] VITALS: BP 138/60
[2021-02-11] VITALS (7 sets, daily range): BP systolic 133–166; BP diastolic 74–99
[2021-02-11] MEDS: IPRATROPIUM BROM 0.5 MG/2.5ML INH SOL NEB SCH ×3 (06:00→19:29)
[2021-02-11] MEDS: ALBUTEROL SULF 2.5 MG/0.5ML(0.5%) NEB SOLN NEB SCH ×3 (06:00→19:29)
[2021-02-11 07:19] LABS: Urine Bacteria NONE SEEN /hpf (None Seen); Urine Blood Negative /uL (Negative); Urine Specific Gravity 1.024 (1.001-1.035); Urine WBC <1 /hpf (0 - 3)
[2021-02-11] MEDS: predniSONE 20 MG TAB PO SCH (08:47)
[2021-02-11] MEDS: PANTOPRAZOLE 40 MG TAB PO SCH (08:48)
[2021-02-11] MEDS: CHOLECALCIFEROL (VITD3) 2,000 UNIT CAP/TAB PO SCH (08:48)
[2021-02-11] MEDS: ASCORBIC ACID 500 MG TAB PO SCH ×2 (08:48→20:53)
[2021-02-11] MEDS: DOXYCYCLINE 100 MG TAB/CAP PO SCH ×2 (08:48→20:52)
[2021-02-11] MEDS: ZINC SULFATE 220mg CAP or TAB PO SCH (08:48)
[2021-02-12 05:00] VITALS: BP 131/79
[2021-02-12] MEDS: IPRATROPIUM BROM 0.5 MG/2.5ML INH SOL NEB SCH (07:11)
[2021-02-12] MEDS: ALBUTEROL SULF 2.5 MG/0.5ML(0.5%) NEB SOLN NEB SCH (07:11)
[2021-02-12 09:00] VITALS: BP 147/89
[2021-02-12] MEDS: CHOLECALCIFEROL (VITD3) 2,000 UNIT CAP/TAB PO SCH (09:25)
[2021-02-12] MEDS: DOXYCYCLINE 100 MG TAB/CAP PO SCH (09:25)
[2021-02-12] MEDS: ASCORBIC ACID 500 MG TAB PO SCH (09:26)
[2021-02-12] MEDS: predniSONE 20 MG TAB PO SCH (09:26)
[2021-02-12] MEDS: PANTOPRAZOLE 40 MG TAB PO SCH (09:26)
[2021-02-12] MEDS: ZINC SULFATE 220mg CAP or TAB PO SCH (09:26)
== END 2021-02-12 10:10 | disposition home or self-care (01) | DRG 139 ==
LOC: ER 12:08 → EDBD 12:08 → TELE 19:02 → TELE-WESTW 02-09 15:45 → WEST WING 02-12 01:53
PROVIDERS: ADMIT Nurse Practitioner Acute Care; ATTEND Internal Medicine
DX: J18.9 Pneumonia, unspecified organism (principal); E88.09 Other disorders of plasma-protein metabolism, not elsewhere classified; J44.0 Chronic obstructive pulmonary disease with (acute) lower respiratory infection; E66.01 Morbid (severe) obesity due to excess calories; R73.9 Hyperglycemia, unspecified; I10 Essential (primary) hypertension; T38.0X5A Adverse effect of glucocorticoids and synthetic analogues, initial encounter; E87.70 Fluid overload, unspecified; Z20.822 Contact with and (suspected) exposure to COVID-19; F12.10 Cannabis abuse, uncomplicated; Z86.16 Personal history of COVID-19; Y92.89 Other specified places as the place of occurrence of the external cause; Z68.41 Body mass index [BMI] 40.0-44.9, adult
CPT/HCPCS: 36415; 71045; 80053; 81001; 83605; 83735; 83880; 84443; 84484; 85025; 85379; 85610; 85730; 87040; 87081; 87426; 93005; 94640; 96365; 96372; 96375; 96376; G0378; J0696

== ENCOUNTER 2025-02-27 19:12 | Inpatient (IN) | payer MEDICAID ==
[~2025-02-27] VITALS: Ht 182.9 cm; Wt 151.7 kg
[~2025-02-27 19:12] MED LIST changes: +LEVO750T40 PO; -LEVO750T64 PO
--- NOTE | 2025-02-27 19:38 | ED.PDOC ---
SOB-HPI HPI Comments 64 year old male presents to the ED via EMS with a chief complaint of shortness of breath onset 1 day. Per EMS, patient has been experiencing shortness of breath since last night. He has been experiencing bilateral leg swelling for the past 1-2 months, states PCP has him on diuretics, does not know the name, states he does not trust PCP, is not complaint with medication. This morning, he was "not feeling right" fell, woke up on the ground, is also experiencing bilateral hand weakness. PMHx DM, HTN, CHF. Denies fever, chills, cough, congestion, abdominal pain, nausea, vomiting, dysuria, hematuria. No other symptoms or modifying factors present at this time. Chief Complaint: Shortness of Breath Time Seen by MD: 19:25 Reviewed notes: Medications, Allergies Information Source: Patient, Emergency Med Personnel Mode of Arrival: EMS Severity: Moderate Timing: Days Duration: Since onset Context: At Rest PE Risk Factors: None History of: CHF Prehospital treatment: None Modifying Factors: Nothing Associated Signs and Symptoms: Leg Swelling Past Medical History PAST MEDICAL HISTORY: CHF, DM, HTN Surgical History: Appendectomy, Hernia Repair Family History Family History: Reviewed,noncontributory to illness Social History Smoker: Non-Smoker Alcohol: Denies ETOH Use Drugs: Marijuana Lives In: Home Constitutional: denies: chills, diaphoresis, fatigue, fever, malaise, sweats, weakness, others EENTM: denies: blurred vision, double vision, ear bleeding, ear discharge, ear drainage, ear pain, ear ringing, eye pain, eye redness, hearing loss, mouth pain, mouth swelling, nasal discharge, nose bleeding, nose congestion, nose pain, photophobia, tearing, throat pain, throat swelling, voice changes, others Respiratory: reports: shortness of breath; denies: cough, hemoptysis, orthopnea, SOB at rest, SOB with excertion, stridor, wheezing, others Cardiovascular: denies: chest pain, dizzy spells, diaphoresis, Dyspnea on exertion, edema, irregular heart beat, left arm pain, lightheadedness, palpitations, PND, syncope, others Gastrointestinal: denies: abdomen distended, abdominal pain, blood streaked bowels, constipated, diarrhea, dysphagia, difficulty swallowing, hematemesis, melena, nausea, poor appetite, poor fluid intake, rectal bleeding, rectal pain, vomiting, others Genitourinary: denies: burning, dysuria, flank pain, frequency, hematuria, incontinence, penile discharge, penile sore, pain, testicle pain, testicle swelling, urgency, others Neurological: reports: weakness (bilateral hands); denies: dizziness, fainting, headache, left sided numbness, left sided weakness, numbness, paresthesia, pre- existing deficit, right sided numbness, right sided weakness, seizure, speech problems, tingling, tremors, others Musculoskeletal: reports: others (BLE swelling); denies: back pain, gout, joint pain, joint swelling, muscle pain, muscle stiffness, neck pain Integumetry: denies: bruises, change in color, change in hair/nails, dryness, laceration, lesions, lumps, rash, wounds, others Allergic/Immunocompromised: denies: Difficulty Healing, Frequent Infections, Hives, Itching, others Hematologic/Lymphatic: denies: anemia, blood clots, easy bleeding, easy bruising, swollen glands, others Endocrine: denies: excessive hunger, excessive sweating, excessive thirst, excessive urination, flushing, intolerance to cold, intolerance to heat, unexplained weight gain, unexplained weight loss, others Psychiatric: denies: anxiety, bipolar disorder, depression, hopeless, panic disorder, schizophrenia, sleepless, suicidal, others All Other Systems: Reviewed and Negative Physical Exam General Appearance: Normal HEENT: Normal ENT Inspection, Pharynx Normal, TMs Normal Neck: Full Range of Motion, Non-Tender, Normal, Normal Inspection Respiratory: Chest Non-Tender, Lungs Clear, No Accessory Muscle Use, No Respiratory Distress, Normal Breath Sounds Cardiovascular: No Edema, No JVD, No Murmur, No Gallop, Normal Peripheral Pulses, Regular Rate/Rhythm Breast Exam: Deferred Gastrointestinal: No Organomegaly, Non Tender, No Pulsatile Mass, Normal Bowel Sounds, Soft Genitalia: Deferred Pelvic: Deferred Rectal: Deferred Extremities: No calf tenderness, Normal capillary refill, Normal inspection, Normal range of motion, Non-tender, No pedal edema Musculoskeletal : Apperance: Normal Neurologic: Alert, yarrow gatherer II-XII nml as Tested, No Motor Deficits, Normal Affect, Normal Mood, No Sensory Deficits Cerebellar Function: Normal Reflexes: Normal Skin: Dry, Normal Color, Warm Lymphatic: No Adenopathy Was a procedure done? Was a procedure done?: No Differential Dx Differential Diagnosis: CHF, COPD, Hypertension, Pneumonia X-Ray, Labs, Meds, VS Vital Signs Date Time Temp Pulse Resp B/P (MAP) Pulse Ox O2 Delivery O2 Flow Rate FiO2 02/27/25 22:19 85 02/27/25 20:24 84 02/27/25 19:28 82 02/27/25 19:18 98.3 84 18 140/86 97 98.3 02/27/25 19:18 18 97 Room Air* 0 21 Lab Test 02/27/25 20:28 02/27/25 19:33 Range/Units Troponin I High Sensitivity 6 6 </=54 ng/L White Blood Count 8.3 4.4-10.8 10^3/uL Red Blood Count 5.04 4.5-5.90 10^6/uL Hemoglobin 14.7 13.5-17.5 g/dL Hematocrit 44.1 41.0-53.0 % Mean Corpuscular Volume 87.7 80.0-100.0 fL Mean Corpuscular Hemoglobin 29.3 28.0-32.0 pg Mean Corpuscular Hemoglobin Concent 33.4 32.0-36.0 g/dL Red Cell Distribution Width 14.2 11.8-14.3 % Platelet Count 312 140-450 10^3/uL Mean Platelet Volume 6.9 6.9-10.8 fL Neutrophils (%) (Auto) 66.5 37.0-80.0 % Lymphocytes (%) (Auto) 19.5 10.0-50.0 % Monocytes (%) (Auto) 12.2 H 0.0-12.0 % Eosinophils (%) (Auto) 1.5 0.0-7.0 % Basophils (%) (Auto) 0.3 0.0-2.0 % Neutrophils # (Auto) 5.5 1.6-8.6 10 ^3/uL Lymphocytes # (Auto) 1.6 0.4-5.4 10 ^3/uL Monocytes # (Auto) 1.0 0-1.3 10 ^3/uL Eosinophils # (Auto) 0.1 0-0.8 10 ^3/uL Basophils # (Auto) 0 0-0.2 10 ^3/uL Nucleated Red Blood Cells 0.0 % Sodium Level 142 136-145 mmol/L Potassium Level 5.1 3.5-5.1 mmol/L Chloride Level 105 98-107 mmol/L Carbon Dioxide Level 29 20-31 mmol/L Anion Gap 8 5-15 Blood Urea Nitrogen 12 9-23 mg/dL Creatinine 1.12 0.700-1.30 mg/dL Glomerular Filtration Rate Calc 74 >90 mL/min BUN/Creatinine Ratio 10.7 10.0-20.0 Serum Glucose 94 74-106 mg/dL Calcium Level 9.4 8.7-10.4 mg/dL B-Type Natriuretic Peptide 16.49 0-100 pg/mL [place] [id number] Ph: [phone] DIAGNOSTIC IMAGING Diagnostic Imaging Report : [id number] Signed PATIENT: MONA BLAKE ACCT: [id number] UNIT: [id number] : 1960 LOC: ER ROOM / BED: / AGE / SEX: 64 / M ADM STATUS: REG ER SERVICE 21 ORDERING PHYSICIAN: YVONNE EDGE MD PROCEDURE(s): CXRP - CHEST PORTABLE REASON: cp ORDER NUMBER(s): [id number], ACCESSION NUMBER(s): [id number] CHEST RADIOGRAPH Indication: cp Technique: Single frontal view of the chest was obtained Comparison: CHEST PORTABLE on DOS: 02/08/21, CHEST PORTABLE on DOS: 01/26/21, CHEST PORTABLE on DOS: 01/25/21 FINDINGS: Lines and Tubes: None Lungs: No focal consolidation. Pleura: No effusion. No pneumothorax. Cardiomediastinal contours: Unremarkable Bones: No acute osseous abnormality. IMPRESSION: 1. No acute cardiopulmonary disease. ATED BY: SHARDA YIP Jr., DO DICTATED DATE/TIME: 02/27/252006 SIGNED BY: SHARDA YIP Jr., DO SIGNED DATE/TIME: 02/27/252006 CC: Time of 1ST Reevaluation: 19:55 Reevaluation 1ST: Unchanged Patient Education/Counseling: Diagnosis, Treatment, Prognosis Family Education/Counseling: No Family Present Additional Information The following tests were ordered, and results were reviewed by me: BMP, CBC, TROP -x3, BNP, EKG-x3, XY CHEST Additional Information was gathered from interviewing the following independent historians: EMS I reviewed and agreed with the following test results read by other providers: XY CHEST I discussed treatment and results with medical personnel and: patient Comprehensive systems review obtained and negative except for what is stated in the HPI. SEPSIS Sepsis Screen Physician Orders Chest Portable (02/27/25 19:22) Electrocardigram (02/27/25 19:22) Electrocardigram (02/27/25 20:22) Electrocardigram (02/27/25 22:22) Vital Signs Date Time Temp Pulse Resp B/P (MAP) Pulse Ox O2 Delivery O2 Flow Rate FiO2 02/27/25 22:19 85 02/27/25 20:24 84 02/27/25 19:28 82 02/27/25 19:18 98.3 84 18 140/86 97 98.3 02/27/25 19:18 18 97 Room Air* 0 21 Laboratory Tests Test 02/27/25 19:33 White Blood Count 8.3 10^3/uL (4.4-10.8) Departure 1 Departure Time of Disposition: 22:42 (Patient presented with shortness of breath that was concerning for possible STEMI, ACS, PE, Pneumonia, Muscle Strain, COPD, Dissection, Acute on Chronic systolic and Diastolic dysfunction. Data: 1. I ordered and reviewed the result of at least 3 labs including a CBC, BMP, and Troponin. 2. I independently interpreted the following tests: EKG which shows sinus arrhthmia and Chest X-ray which shows cardiomegaly.Risk:This patient has a high risk of morbidity due to further diagnostic testing or treatment and may suffer from an acute cardiac or respiratory disorder but is most consitent with an acute chf exacerbation. Patient should be admitted for further workup and possible expert consultation. ) Impression: Primary Impression: Acute on chronic systolic heart failure Additional Impression: Shortness of breath Disposition: ADMITTED INPATIENT Admit to: Tele Condition: Guarded Critical Care Note Critical Care Time?: Yes Critical care comment: Acute shortness of breath Authorized and Performed by: Yvonne Edge MD Total critical care time: Approximately 38 minutes Due to a high probability of clinically significant, life threatening deterioration, the patient required my highest level of preparedness to intervene emergently and I personally spent this critical care time directly and personally managing the patient. This critical care time included obtaining a history; examining the patient; pulse oximetry; ordering and review of studies; arranging urgent treatment with development of a management plan; evaluation of patient's response to treatment; frequent reassessment; and, discussions with other providers. This critical care time was performed to assess and manage the high probability of imminent, life-threatening deterioration that could result in multi-organ failure. It was exclusive of separately billable procedures and treating other patients and teaching time. Please see my other sections and the rest of the note for further information on patient assessment and treatment. Stability Stability form required: No Heart Score Heart Score: Heart Score Response (Comments) Value History Moderate Suspicious 1 EKG Repolarization Disturb 1 Age 45-64 1 Risk Factors 1 or 2 risk factors 1 Troponin 1-2 x's Normal limit 1 Total 5 I personally scribed for YVONNE EDGE MD ([email or web address]) on 02/27/25 at 19:38. Electronically submitted by Aleja Edwards ([email or web address]). I personally scribed for YVONNE EDGE MD ([email or web address]) on 02/27/25 at 20:15. Electronically submitted by Aleja Edwards ([email or web address]). I personally scribed for YVONNE EDGE MD ([email or web address]) on 02/27/25 at 20:16. Elect ronically submitted by Aleja Edwards ([email or web address]). YVONNE EDGE MD Feb 27, 2025 19:38
[2025-02-27 19:58] LABS: Hematocrit 44.1 % (41.0-53.0); Hemoglobin 14.7 g/dL (13.5-17.5); Mean Corpuscular Hemoglobin 29.3 pg (28.0-32.0); Mean Corpuscular Volume 87.7 fL (80.0-100.0); Nucleated Red Blood Cells % 0.0 %
[2025-02-27 20:06] LABS: Chloride 105 mmol/L (98-107); Potassium 5.1 mmol/L (3.5-5.1); Sodium 142 mmol/L (136-145)
[2025-02-27 20:07] LABS: Anion Gap 8 (5-15); Calcium 9.4 mg/dL (8.7-10.4); Carbon Dioxide 29 mmol/L (20-31)
--- NOTE | 2025-02-27 20:09 | DVH ---
CHEST RADIOGRAPH Indication: cp Technique: Single frontal view of the chest was obtained Comparison: CHEST PORTABLE on DOS: 02/08/21, CHEST PORTABLE on DOS: 01/26/21, CHEST PORTABLE on DOS: 12/28 07/18 FINDINGS: Lines and Tubes: None Lungs: No focal consolidation. Pleura: No effusion. No pneumothorax. Cardiomediastinal contours: Unremarkable Bones: No acute osseous abnormality. IMPRESSION: 1. No acute cardiopulmonary disease.
[2025-02-27 20:12] LABS: BUN/Creatinine Ratio 10.7 (10.0-20.0); Blood Urea Nitrogen 12 mg/dL (9-23); Glucose 94 mg/dL (74-106)
[2025-02-28] MEDS ORDERED: DOCUSATE SOD 100 MG CAP PO PRN
[2025-02-28] MEDS ORDERED: ACETAMINOPHEN 325 MG TAB PO PRN
[2025-02-28] MEDS ORDERED: ONDANSETRON HCL 4 MG/2 ML VIAL IV PRN
[2025-02-28] MEDS ORDERED: VANCOMYCIN PER PHARMACY 0 MG IV SCH (01:00)
[2025-02-28] MEDS: HYDROcodone-ACET 5/325MG TAB PO PRN (03:41)
[2025-02-28] MEDS: VANCOMYCIN 1GM/250ML IV SCH (03:53)
[2025-02-28] MEDS ORDERED: SEMA2INJ3 SC (04:00)
[2025-02-28] MEDS ORDERED: CARV3.1240 PO (04:00)
[2025-02-28] MEDS ORDERED: GABA-1250 PO (04:00)
[2025-02-28] MEDS ORDERED: FURO40TA4 PO (04:00)
[2025-02-28] MEDS ORDERED: EMPA1TAB3 PO (04:00)
[2025-02-28] MEDS: VANCOMYCIN 1GM/250ML KIT 250 ML IV ONE (05:13)
[2025-02-28] MEDS ORDERED: CEFEPIME 1GM/50ML 50 ML IV SCH ×2 (06:00→18:00)
--- NOTE | 2025-02-28 06:10 | ECG ---
[facility] Test Date: 2025-02-27 Test Time: 22:19:40 Pat Name: MONA BLAKE Department: ED Room: 0215 B Gender: M Network Coordinator: ZENON : 1960 Requested By: YVONNE ROSE Order Number: [id number] Reading MD: Jason Pitts Measurements Intervals [place] Rate: 85 P: 78 TN: 142 QRS: 82 QRSD: 115 T: 44 QT: 378 QTc: 450 Interpretive Statements Sinus rhythm Atrial premature complex Nonspecific intraventricular conduction delay Low voltage, precordial leads Electronically Signed On 03-01-2025 17:01:47 PDT by Jason Pitts Please click the below link to view image of tracing.
[2025-02-28 06:34] VITALS: RESP 18
[2025-02-28] MEDS: GABAPENTIN 300 MG CAP PO SCH (07:29)
--- NOTE | 2025-02-28 08:11 | DVH ---
Bilateral lower extremity venous duplex Clinical History: rule out VTE Comparison: CT LEFT LOWER EXTREMITY W/O CON on DOS: 02/28/25, BI LOWER DVT on DOS: 01/26/21 Findings: Duplex Doppler evaluation of the deep venous systems of both lower extremities from the common femora l veins to the popliteal veins including color Doppler and spectral/pulsed waveform analysis was perf ormed. RIGHT SIDE: The common femoral vein demonstrates appropriate compressibility and waveform variability. There is compressibility/patency of the great saphenous vein at the proximal thigh. The femoral vein demonstrates appropriate compressibility and waveform variability. The deep femoral vein demonstrates appropriate compressibility and waveform variability. The popliteal vein demonstrates appropriate compressibility and waveform variability. There is normal compressibility at the tibioperoneal trunk. LEFT SIDE: The common femoral vein demonstrates appropriate compressibility and waveform variability. There is compressibility/patency of the great saphenous vein at the proximal thigh. The femoral vein demonstrates appropriate compressibility and waveform variability. The deep femoral vein demonstrates appropriate compressibility and waveform variability. The popliteal vein demonstrates appropriate compressibility and waveform variability. There is normal compressibility at the tibioperoneal trunk. IMPRESSION: No right or left femoropopliteal venous thrombosis. If clinical concern/symptoms persist or worsen, short-interval follow-up study is suggested. END IMPRESSION:
--- NOTE | 2025-02-28 08:32 | DVHHPRES ---
History of Present Illness Resident Creating Document: KATINA GONZALEZ RESIDENT History of Present Illness 56-year-old male with past medical history of congestive heart failure, type 2 diabetes mellitus, essential hypertension, diabetic neuropathy presented with complaints of left leg pain and discharge associated with bilateral pedal edema. Patient complains of 10/10 pain in the area. Patient states that the pedal edema started 1.5 months ago was associated with peeling of the skin. PSHx: Appendectomy, surgery for hernia, shoulder surgery Family history: Hypertension in father and mother Social history: Admits to alcohol and marijuana use, denies smoking, lives alone Home medication: Reconcile meds Allergic history: Patient denies Review of Systems Review of Systems General: patient denies fever, fatigue, weaknes, sweating, any recent changes in appetite and weight HEENT: No headaches, visiual changes, hearing loss, tinnitus, nasal congestion and discharge, and sore throat. Cardiovascular: Denies chest pain, palpitations, dyspnea on exertion, orthopnea, or claudication. Respiratory: No cough, and wheezing. Gastrointestinal: Denies nausea, vomiting, dysphagia, odynophagia, heartburn, abdominal pain, flatulence, bloating, diarrhea, constipation, change in stool, or blood in stool. Genitourinary: No dysuria, hematuria, discharge, frequency, urgency, nocturia, incontinence, and urinary retention. Endocrine: No heat or cold intolerance, polydipsia, polyuria, and polyphagia. Neurological: No dizziness, extremity weakness and numbness, tremors, gait disturbance, seizures, and memory impairment. Psychiatric: Denies depression, anxiety,or insomnia. Musculoskeletal: Complains of pain, swelling and discharge in the left leg. Skin: No rashes, itching, skin lesion, changes in hair, nail, skin texture and breast. Hematologic/Lymphatic: Denies easy bruising, bleeding tendencies, or lymph node enlargement. Allergies: Coded Allergies: NO KNOWN ALLERGIES (Unverified , 01/25/21) Medications Current Medications Medications Dose Ordered Sig/Kae Route Start Time Stop Time Status Last Admin Dose Admin Acetaminophen 325 mg Q4HP PRN PO 02/28/25 00:00 Acetaminophen/ Hydrocodone Bitart 1 tab Q4HP PRN PO 02/28/25 00:00 02/28/25 03:41 1 TAB Ondansetron HCl 4 mg Q4HP PRN IV 02/28/25 00:00 Docusate Sodium 100 mg BIDPRN PRN PO 02/28/25 00:00 Vancomycin HCl 0 ml @ 0 mls/hr UD IV 02/28/25 01:00 UNV Gabapentin 600 mg TID PO 02/28/25 06:00 02/28/25 07:29 600 MG Cefepime HCl 50 ml @ 12.5 mls/hr Q8HR IV 02/28/25 06:00 Exam Vital Signs Vital Signs Date Time Temp Pulse Resp B/P (MAP) Pulse Ox O2 Delivery O2 Flow Rate FiO2 02/28/25 06:34 18 Room Air* 0 21 02/28/25 02:12 98.3 79 139/83 (101) 95 98.3 Exam General Appearance: Alert, Oriented X3, Cooperative, No acute distress HEENT: Atraumatic, PERRLA, EOMI, Mucous membrane moist/pink Respiratory: Clear to auscultation, Normal air movement Cardiovascular: Regular rate, Normal S1, Normal S2, No murmurs, no chest wall tenderness Abdominal: Normal bowel sounds, Soft, No tenderness, No hepatospenomegaly, No masses Extremities: Left lower limb pitting edema, erythema and discharge present Skin: No rashes, No breakdown, No significant lesion Neuro: Normal gait, Normal speech, Strength at 5/5 X4 ext, Normal tone, Sensation intact, Cranial nerves 3-12 NL, Reflexes 2+ Psych/Mental Status: Mental status NL, Mood NL Labs/Xrays Labs Test 02/27/25 20:28 02/27/25 19:33 Range/Units Troponin I High Sensitivity 6 </=54 ng/L White Blood Count 8.3 4.4-10.8 10^3/uL Red Blood Count 5.04 4.5-5.90 10^6/uL Hemoglobin 14.7 13.5-17.5 g/dL Hematocrit 44.1 41.0-53.0 % Mean Corpuscular Volume 87.7 80.0-100.0 fL Mean Corpuscular Hemoglobin 29.3 28.0-32.0 pg Mean Corpuscular Hemoglobin Concent 33.4 32.0-36.0 g/dL Red Cell Distribution Width 14.2 11.8-14.3 % Platelet Count 312 140-450 10^3/uL Mean Platelet Volume 6.9 6.9-10.8 fL Neutrophils (%) (Auto) 66.5 37.0-80.0 % Lymphocytes (%) (Auto) 19.5 10.0-50.0 % Monocytes (%) (Auto) 12.2 H 0.0-12.0 % Eosinophils (%) (Auto) 1.5 0.0-7.0 % Basophils (%) (Auto) 0.3 0.0-2.0 % Neutrophils # (Auto) 5.5 1.6-8.6 10 ^3/uL Lymphocytes # (Auto) 1.6 0.4-5.4 10 ^3/uL Monocytes # (Auto) 1.0 0-1.3 10 ^3/uL Eosinophils # (Auto) 0.1 0-0.8 10 ^3/uL Basophils # (Auto) 0 0-0.2 10 ^3/uL Nucleated Red Blood Cells 0.0 % Sodium Level 142 136-145 mmol/L Potassium Level 5.1 3.5-5.1 mmol/L Chloride Level 105 98-107 mmol/L Carbon Dioxide Level 29 20-31 mmol/L Anion Gap 8 5-15 Blood Urea Nitrogen 12 9-23 mg/dL Creatinine 1.12 0.700-1.30 mg/dL Glomerular Filtration Rate Calc 74 >90 mL/min BUN/Creatinine Ratio 10.7 10.0-20.0 Serum Glucose 94 74-106 mg/dL Calcium Level 9.4 8.7-10.4 mg/dL B-Type Natriuretic Peptide 16.49 0-100 pg/mL SEPSIS Sepsis Screen Date sepsis recognized/suspect: Feb 27, 2025 Time Sepsis recognized/suspect: 1917 Recent Procedure: No On Antibiotic Therapy: No Respiratory Rate >20: No Heart Rate >90: No Temp<36 C (96.8 F) or >38.3 C: No SBP <90 or MAP <65 mmHG: No New Acute Mental Status Change: No Is the patient on CPAP, BIPAP,: No Physician Orders * Wound Consult (02/28/25 ) Wound Culture W/ Gs (02/28/25 03:33) Clean Wound (02/28/25 ) Vancomycin Per Pharmacy (02/28/25 01:00) Blood Culture (02/28/25 04:56) Echo 2d Mode Cardiac Dop (02/28/25 04:56) D-Dimer (02/28/25 04:56) Bilat Lower Dvt (02/28/25 04:56) Drug Screen (02/28/25 04:56) Blood Alcohol (02/28/25 04:56) Hemoglobin A1c (02/28/25 04:56) Gabapentin Capsule (Neurontin Capsule) (02/28/25 06:00) Cefepime 1gm/ 50ml (Maxipime 1gm/50ml) (02/28/25 06:00) Urinalysis (02/28/25 05:10) Thyroid Stimulating Hormone (02/28/25 05:10) Left Lower Extremity W/O Con (02/28/25 04:56) Vital Signs Date Time Temp Pulse Resp B/P (MAP) Pulse Ox O2 Delivery O2 Flow Rate FiO2 02/28/25 06:34 18 Room Air* 0 21 02/28/25 02:12 98.3 79 18 139/83 (101) 95 98.3 Medications Medications Dose Ordered Sig/Kae Route Start Time Stop Time Status Last Admin Dose Admin Acetaminophen/ Hydrocodone Bitart 1 tab Q4HP PRN PO 02/28/25 00:00 02/28/25 03:41 1 TAB Gabapentin 600 mg TID PO 02/28/25 06:00 02/28/25 07:29 600 MG Vancomycin HCl 250 ml @ 250 mls/hr Q1H IV 02/28/25 01:00 02/28/25 02:59 DC 02/28/25 06:00 250 MLS/HR Assessment/Plan Assessment/Plan #Left lower limb cellulitis-sent for wound culture, blood culture and wound consult #Venous insufficiency-outpatient vascular surgery follow-up, stockings #DVT to rule out-D-dimer, ultrasound #History of type 2 diabetes mellitus-target blood glucose 140-180 #History of hypertension-carvedilol at home held as normotensive #To rule out abscess, osteomyelitis #History of diabetic neuropathy-gabapentin #Grade 3 obesity #Stage 2 CKD #History of recurrent cellulitis Barriers to discharge: Medical management in progress. Case discussed with Dr. Lowery Code status: Full code. Complex patient care discussion needed total 31 minutes Plan discussed with: Patient My Orders Orders - KATINA GONZALEZ RESIDENT Procedure Category Date Status Time Admit ADMIT 02/27/25 Transmitted 23:51 Allergies ANGELES 02/27/25 In Process 23:51 Code Status CODE 02/27/25 Transmitted 23:51 Acetaminophen Tablet PHA 02/28/25 In Process (Tylenol Tablet) 00:00 Hydrocodone-Acet PHA 02/28/25 In Process 5/325mg Tab ([place] 00:00 Ondansetron Hcl PHA 02/28/25 In Process (Zofran) 00:00 Docusate Sodium PHA 02/28/25 In Process Capsule ([place] 00:00 Complete Blood Count LAB 02/28/25 Logged 04:00 Comprehensive LAB 02/28/25 Logged Metabolic Panel 04:00 Cardiac DIET 02/28/25 Transmitted Diet-2gna,Lofat,Lochol Breakfast Bedside Commode ANGELES 02/27/25 In Process 23:51 * Wound Consult CONS 02/28/25 Transmitted Wound Culture W/ Gs NARINDER 02/28/25 In Process 03:33 Clean Wound ED NURSING 02/28/25 Transmitted Vancomycin Per PHA 02/28/25 Pending Pharmacy 01:00 Date of Service: Feb 27, 2025 Billing Provider: RU LOWERY MD Common Visit Codes: 06421-[id number] INP/OBS CARE (HIGH) Secondary Visit Codes: 22704-[id number] CARE PLAN 30 MINUTES KATINA GONZALEZ Feb 28, 2025 08:32
[2025-02-28 08:46] VITALS: BP 118/76; PULSE 79; RESP 17; TEMP 97.9; O2SAT 95
[2025-02-28 09:52] LABS: Hematocrit 45.1 % (41.0-53.0); Hemoglobin 15.1 g/dL (13.5-17.5); Mean Corpuscular Hemoglobin 29.3 pg (28.0-32.0); Mean Corpuscular Volume 87.3 fL (80.0-100.0); Nucleated Red Blood Cells % 0.1 %
--- NOTE | 2025-02-28 09:57 | DVH ---
INDICATION: Foot with left leg till knee COMPARISON: None TECHNIQUE: CT of the left lower extremity was performed without contrast. Volume transverse images we re obtained and reconstructed in multiple planes using bone and soft tissue algorithms. Radiation Dose Information: CT Dose: CTDI volume is 9.03 mGy. Dose-length product is 631.39 mGy*cm FINDINGS: The alignment is normal. Severe tricompartmental degenerative changes of the knee joint. There is no fracture, dislocation or aggressive osseous lesion. Small knee joint effusion. Vascular atherosclerotic calcifications are present. Diffuse subcutaneous soft-tissue edema and swell ing and skin thickening most prominent in the distal calf, ankle and foot. IMPRESSION: No acute osseous findings. Diffuse soft tissue swelling/edema in the lower leg, ankle and foot. This may represent cellulitis. Small knee joint effusion. Severe tricompartmental degenerative changes of the knee joint.
[2025-02-28 10:20] LABS: Alanine Aminotransferase 13 U/L (7-40); Albumin 4.0 g/dL (3.2-4.8); Alkaline Phosphatase 82 U/L (46-116); Anion Gap 7 (5-15); BUN/Creatinine Ratio 9.3 (10.0-20.0); Bilirubin, Total 0.9 mg/dL (0.2-1.0); Blood Urea Nitrogen 10 mg/dL (9-23); Calcium 8.8 mg/dL (8.7-10.4); Carbon Dioxide 26 mmol/L (20-31); Chloride 105 mmol/L (98-107); Potassium 4.1 mmol/L (3.5-5.1); Sodium 138 mmol/L (136-145); Total Protein 7.1 g/dL (5.7-8.2)
[2025-02-28 10:33] LABS: Glucose 132 mg/dL (74-106)
[2025-02-28] MEDS: CEFEPIME 1GM/50ML 50 ML IV ONE (10:33)
[2025-02-28 12:53] VITALS: BP 176/91; PULSE 78; RESP 18; TEMP 97.8; O2SAT 97
--- NOTE | 2025-02-28 13:21 | DVHPN2 ---
Reviewed: Care Plan, H&P, Labs, Medications, Previous Orders, Radiology Changes from previous H/P or p: No Changes Objective Vitals Vital Signs Date Time Temp Pulse Resp B/P (MAP) Pulse Ox O2 Delivery O2 Flow Rate FiO2 02/28/25 12:53 97.8 78 18 176/91 (119) 97 97.8 02/28/25 06:34 Room Air* 0 21 Intake/Output Intake and Output 02/28/25 07:00 Intake Total 650 ml Balance 650 ml Intake Oral 400 ml IV Total 250 ml Medications Current Medications Medications Dose Ordered Sig/Kae Route Start Time Stop Time Status Last Admin Dose Admin Acetaminophen 325 mg Q4HP PRN PO 02/28/25 00:00 Acetaminophen/ Hydrocodone Bitart 1 tab Q4HP PRN PO 02/28/25 00:00 02/28/25 13:03 1 TAB Ondansetron HCl 4 mg Q4HP PRN IV 02/28/25 00:00 Docusate Sodium 100 mg BIDPRN PRN PO 02/28/25 00:00 Vancomycin HCl 0 ml @ 0 mls/hr UD IV 02/28/25 01:00 Gabapentin 600 mg TID PO 02/28/25 06:00 02/28/25 07:29 600 MG Cefepime HCl 50 ml @ 12.5 mls/hr Q8H IV 02/28/25 18:00 Vancomycin HCl 250 ml @ 200 mls/hr Q12H IV 02/28/25 16:00 Laboratory Results Laboratory Tests 02/28/25 09:40 Chemistry Test 02/27/25 19:33 02/28/25 09:40 Calcium Level 9.4 mg/dL (8.7-10.4) 8.8 mg/dL (8.7-10.4) Albumin 4.0 g/dL (3.2-4.8) Total Protein 7.1 g/dL (5.7-8.2) Coagulation Test 02/28/25 09:40 D-Dimer, Quantitative 0.69 mg/L FEU (0.0-0.49) H Cardiac Markers Test 02/27/25 19:33 B-Type Natriuretic Peptide 16.49 pg/mL (0-100) LFT Test 02/28/25 09:40 Alanine Aminotransferase (ALT) 13 U/L (7-40) Alkaline Phosphatase 82 U/L (46-116) Aspartate Amino Transferase (AST) 19 U/L (13-40) Total Bilirubin 0.9 mg/dL (0.2-1.0) HgA1c, TSH Test 02/28/25 09:40 Hemoglobin A1c 5.7 % A1C (<5.7) Thyroid Stimulating Hormone (TSH) 1.96 uIU/mL (0.55-4.78) Labs and/or images reviewed: Labs reviewed by me, Image(s) reviewed by me Assessment/Plan Assessment/Plan Sepsis secondary to cellulitis Cellulitis left lower extremity: Cefepime vancomycin blood cultures wound consult DVT ruled out Type 2 diabetes uncontrolled Hypotension Diabetic neuropathy Moderate malnutrition Time spent 50 minutes Advanced care planning time 20 minutes Patient is full code Plan discussed with: Patient Date of Service: Feb 28, 2025 Billing Provider: MURIEL ROTH MD Common Visit Codes: [id number] INP/OBS CARE(HIGH) Secondary Visit Codes: [id number] CARE PLAN 30 MINUTES MURIEL ROTH MD Feb 28, 2025 13:21
[2025-02-28 17:00] VITALS: BP 135/88; PULSE 82; RESP 16; TEMP 98.2; O2SAT 96
[2025-02-28] MEDS: VANCOMYCIN 1.25GM/250ML 250 ML IV SCH (17:14)
--- NOTE | 2025-02-28 19:37 | DVH ---
BILATERAL Lower Extremity Arterial Duplex Date: 02/28/2025 04:22 PM Clinical History: rule out pad on right leg/foot Comparison: CT LEFT LOWER EXTREMITY W/O CON on DOS: 02/28/25, US BILAT LOWER DVT on DOS: 02/28/25, BI LOW ER DVT on DOS: 01/26/21 Technique: Duplex Doppler evaluation including color Doppler and spectral/pulsed waveform analysis of the lower extremity arteries was performed. 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 REFERENCE VALUES, [facility] ([facility]) vascular Imaging Lab Criteria: Peak systolic velocity ranges (in cm/sec) are as follows: <150 cm/s - <20 % stenosis 150-200 cm/s - 20-49% stenosis 200-300 cm/s - 50-75% stenosis >300 cm/s -> 75% stenosis IMPRESSION: 1. There is no evidence for peripheral vascular insufficiency in the left lower extremity. 2. No significant focal stenosis is identified.
[2025-02-28 21:00] VITALS: BP 126/63; PULSE 89; RESP 18; TEMP 98; O2SAT 95
[2025-02-28] MEDS ORDERED: CEFEPIME 1GM/50ML 50 ML IV ONE (21:00)
[2025-02-28] MEDS: CEFEPIME 1GM/50ML 50 ML IV SCH (21:34)
[2025-03-01] VITALS (7 sets, daily range): BP systolic 100–140; BP diastolic 66–94; PULSE 54–89; RESP 17–20; TEMP 97.5–98.8; O2SAT 94–98
--- NOTE | 2025-03-01 08:32 | DVHPN2 ---
Reviewed: Care Plan, H&P, Labs, Medications, Previous Orders, Radiology Changes from previous H/P or p: No Changes Objective Vitals Vital Signs Date Time Temp Pulse Resp B/P (MAP) Pulse Ox O2 Delivery O2 Flow Rate FiO2 03/01/25 05:00 98.2 85 18 106/66 (79) 98 98.2 02/28/25 20:00 Room Air* 0 21 Intake/Output Intake and Output 03/01/25 07:00 Intake Total 2150 ml Balance 2150 ml Intake Oral 2150 ml # Voids 4 Medications Current Medications Medications Dose Ordered Sig/Kae Route Start Time Stop Time Status Last Admin Dose Admin Acetaminophen 325 mg Q4HP PRN PO 02/28/25 00:00 Acetaminophen/ Hydrocodone Bitart 1 tab Q4HP PRN PO 02/28/25 00:00 03/01/25 08:11 1 TAB Ondansetron HCl 4 mg Q4HP PRN IV 02/28/25 00:00 Docusate Sodium 100 mg BIDPRN PRN PO 02/28/25 00:00 Vancomycin HCl 0 ml @ 0 mls/hr UD IV 02/28/25 01:00 Gabapentin 600 mg TID PO 02/28/25 06:00 03/01/25 05:27 600 MG Vancomycin HCl 250 ml @ 200 mls/hr Q12H IV 02/28/25 16:00 03/01/25 03:10 200 MLS/HR Cefepime HCl 50 ml @ 12.5 mls/hr Q8H IV 02/28/25 21:00 03/01/25 05:11 12.5 MLS/HR Laboratory Results Laboratory Tests 02/28/25 09:40 03/01/25 04:46 Chemistry Test 02/28/25 09:40 Albumin 4.0 g/dL (3.2-4.8) Calcium Level 8.8 mg/dL (8.7-10.4) Total Protein 7.1 g/dL (5.7-8.2) Coagulation Test 02/28/25 09:40 D-Dimer, Quantitative 0.69 mg/L FEU (0.0-0.49) H LFT Test 02/28/25 09:40 Alanine Aminotransferase (ALT) 13 U/L (7-40) Alkaline Phosphatase 82 U/L (46-116) Aspartate Amino Transferase (AST) 19 U/L (13-40) Total Bilirubin 0.9 mg/dL (0.2-1.0) HgA1c, TSH Test 02/28/25 09:40 Hemoglobin A1c 5.7 % A1C (<5.7) Thyroid Stimulating Hormone (TSH) 1.96 uIU/mL (0.55-4.78) Labs and/or images reviewed: Labs reviewed by me, Image(s) reviewed by me Assessment/Plan Assessment/Plan Sepsis secondary to left lower extremity cellulitis Cellulitis left lower extremity: Cefepime vancomycin blood cultures wound consult, podiatric consult for Dr. Pike , he is on vacation this week, no coverage DVT ruled out left lower extremity Peripheral arterial disease left lower extremity ruled out Uncontrolled diabetes type 2 Hypertension Diabetic neuropathy Moderate malnutrition Time spent 50 minutes Advanced care planning time 20 minutes Patient is full code Plan discussed with: Patient My Orders Orders - MURIEL ROTH MD Procedure Category Date Status Time Podiatry Consult CONS 02/28/25 Transmitted 15:48 Lt Low Ext Art Duplex US 02/28/25 Resulted 15:52 * Dietary Consult CONS 02/28/25 Transmitted 18:15 Cleanse Wound With ANGELES 02/28/25 In Process Wound Clean 14:15 Date of Service: Mar 01, 2025 Billing Provider: MURIEL ROTH MD Common Visit Codes: [id number] INP/OBS CARE(HIGH) MURIEL ROTH MD Mar 01, 2025 08:32
[2025-03-01] MEDS: HYDROcodone-ACET 10/325MG TAB PO PRN (10:43)
--- NOTE | 2025-03-01 11:48 | ECG ---
[facility] Test Date: 2025-02-27 Test Time: 20:24:00 Pat Name: MONA BLAKE Department: Room: 0215 B Gender: M Auto Painter Helper: ZENON : 1960 Requested By: YVONNE ROSE Order Number: [id number] Reading MD: Jason Pitts Measurements Intervals [place] Rate: 84 P: 53 ID: [id number] QRS: 66 QRSD: 107 T: 62 QT: 369 QTc: 437 Interpretive Statements Sinus rhythm Atrial premature complexes Minimal ST elevation, inferior leads Electronically Signed On 03-01-2025 17:01:35 PDT by Jason Pitts Please click the below link to view image of tracing.
--- NOTE | 2025-03-01 11:48 | ECG ---
[facility] Test Date: 2025-02-27 Test Time: 19:28:54 Pat Name: MONA BLAKE Department: Room: 0215 B Gender: M Pharmaceutical Detailer: ROSALIA : 1960 Requested By: YVONNE ROSE Order Number: [id number] Reading MD: Jason Pitts Measurements Intervals [place] Rate: 82 P: 44 AL: 152 QRS: 65 QRSD: 110 T: 60 QT: 375 QTc: 438 Interpretive Statements Sinus rhythm Multiple premature complexes, vent & supraven Electronically Signed On 03-01-2025 17:01:27 PDT by Jason Pitts Please click the below link to view image of tracing.
--- NOTE | 2025-03-01 12:05 | DVHSR ---
APPROVED REPORT EXAM: Two-dimensional and M-mode echocardiogram with Doppler and color Doppler. DIMENSIONS LVDd5.0 (3.8-5.7cm)LA (2D) (1.9-4.0cm)Aortic Root (2.0-3.7cm) LVDs3.4 (2.5-4.0cm)LA (MM) (1.9-4.0cm)Aortic Cusp Exc (1.5-2.0cm) EF (%) 60.4 (55-70%)Rt. Atrium (1.9-4.0cm)Asc. Aorta cm IVSd1.7 (0.7-1.1cm)RV (D) (1.8-2.4cm) PWd0.8 (0.7-1.1cm) Mitral Valve MitralMitral Stenosis E wave0.86m/sMV Mean GR.mmHg A wave1.01m/sMV Peak GR.mmHg E/A ratio0.92D MVAcm2 DECEL [id number] 1/2 Timems Aortic Valve Aortic ValveAortic Stenosis V11.54m/Jesse Mean GR.9mmHg V22.09m/Jesse Peak GR.17mmHg LVOT Diameter2.2 (1.8-2.4cm)Doppler AVA2.80cm2 Conclusion lvef 65% mild LVH RV normal function left atrium enlarged no severe valve abnormalities noted
[2025-03-01] MEDS ORDERED: VANCOMYCIN 1.5GM/250ML 250 ML IV SCH (18:00)
[2025-03-01] MEDS ORDERED: ZOLPIDEM TARTRATE 5 MG TAB PO PRN (18:30)
[2025-03-02] VITALS (7 sets, daily range): BP systolic 102–145; BP diastolic 55–75; PULSE 73–86; RESP 18–22; TEMP 98–98.6; O2SAT 95–97
[2025-03-02 00:43] LABS: Cannabinoid Screen, Urine Pos (NEGATIVE); Opiate Scree,Urine Pos (NEGATIVE)
[2025-03-02 00:49] LABS: Amphetamine Screen, Urine Pos (NEGATIVE); Barbiturate Scree,Urine Neg (NEGATIVE); Benzodiazephine Screen, Urine Neg (NEGATIVE); Cocaine Screen, Urine Neg (NEGATIVE); Phencyclidine Screen, Urine Neg (NEGATIVE)
[2025-03-02 00:50] LABS: Urine Protein, UAD Negative (Negative)
[2025-03-02] MEDS: VANCOMYCIN 1.5GM/250ML 250 ML IV SCH (04:01)
--- NOTE | 2025-03-02 08:50 | DVHPN2 ---
Reviewed: Care Plan, H&P, Labs, Medications, Previous Orders, Radiology Changes from previous H/P or p: No Changes Objective Vitals Vital Signs Date Time Temp Pulse Resp B/P (MAP) Pulse Ox O2 Delivery O2 Flow Rate FiO2 03/02/25 05:00 98.0 82 18 102/74 (83) 95 98.0 03/01/25 20:00 Room Air* 0 21 Intake/Output Intake and Output 03/02/25 07:00 Intake Total 2280 ml Output Total 3275 ml Balance -995 ml Intake Oral 1930 ml IV Total 350 ml Output Urine Total 3275 ml Medications Current Medications Medications Dose Ordered Sig/Kae Route Start Time Stop Time Status Last Admin Dose Admin Acetaminophen 325 mg Q4HP PRN PO 02/28/25 00:00 Ondansetron HCl 4 mg Q4HP PRN IV 02/28/25 00:00 Docusate Sodium 100 mg BIDPRN PRN PO 02/28/25 00:00 Vancomycin HCl 0 ml @ 0 mls/hr UD IV 02/28/25 01:00 Gabapentin 600 mg TID PO 02/28/25 06:00 03/02/25 05:51 600 MG Cefepime HCl 50 ml @ 12.5 mls/hr Q8H IV 02/28/25 21:00 03/02/25 05:51 12.5 MLS/HR Acetaminophen/ Hydrocodone Bitart 1 tab Q6HP PRN PO 03/01/25 10:15 03/01/25 23:57 1 TAB Vancomycin HCl 250 ml @ 166.667 mls/hr Q12H IV 03/01/25 18:00 Cancel Vancomycin HCl 250 ml @ 166.667 mls/hr Q12H IV 03/02/25 04:00 03/02/25 04:01 166.667 MLS/HR Zolpidem Tartrate 10 mg HSPRN PRN PO 03/01/25 18:30 Laboratory Results Laboratory Tests 02/28/25 09:40 03/01/25 04:46 Urinalysis Test 03/01/25 23:49 Urine Color Light-yellow (Yellow) Urine Clarity Clear (Clear) Urine pH 5.5 (5.0-9.0) Urine Specific [place] 1.015 (1.001-1.035) Urine Protein Negative (Negative) Urine Ketones Negative (Negative) Urine Blood Negative /uL (Negative) Urine Nitrite Negative (Negative) Urine Bilirubin Negative (Negative) Urine Urobilinogen Normal mg/dL (Negative) Urine Leukocyte Esterase Negative /uL (Negative) Urine RBC None seen /hpf (0 - 3) Urine Microscopic WBC 5 /HPF (0-3) H Urine Squamous Epithelial Cells Few /hpf (<5) Urine Bacteria None seen /hpf (None Seen) Urine Glucose Normal mg/dL (Normal) Microbiology Microbiology Date/Time Source Procedure Growth Status 02/28/25 09:40 Blood Blood Culture - Preliminary NO GROWTH AFTER 24 HOURS OF INCUBATION. Resulted 02/28/25 03:15 Leg Gram Stain - Final Resulted 02/28/25 03:15 Leg Wound Culture - Preliminary Resulted Labs and/or images reviewed: Labs reviewed by me, Image(s) reviewed by me Assessment/Plan Assessment/Plan Sepsis secondary to left lower extremity cellulitis Cellulitis left lower extremity: Cefepime vancomycin blood cultures negative, wound cultures growing Gram-negative rods wound consult, podiatric consult for Dr. Pike , he is on vacation this week, no coverage DVT left lower extremity ruled out Peripheral arterial disease left lower extremity ruled out Uncontrolled diabetes type 2 Hypertension Diabetic neuropathy Moderate malnutrition Time spent 50 minutes Advanced care planning time 20 minutes Patient is full code Plan discussed with: Patient My Orders Orders - MURIEL ROTH MD Procedure Category Date Status Time Hydrocodone-Acet PHA 03/01/25 In Process 10/325mg Tab ([place] 10:15 Zolpidem Tartrate PHA 03/01/25 In Process (Ambien) 18:30 Date of Service: Mar 02, 2025 Billing Provider: MURIEL ROTH MD Common Visit Codes: [id number] INP/OBS CARE(HIGH) MURIEL ROTH MD Mar 02, 2025 08:50
[2025-03-03] VITALS (7 sets, daily range): BP systolic 110–134; BP diastolic 49–88; PULSE 74–83; RESP 17–20; TEMP 97.7–98.9; O2SAT 93–100
[2025-03-03 03:24] LABS: Hematocrit 43.7 % (41.0-53.0); Hemoglobin 14.9 g/dL (13.5-17.5); Mean Corpuscular Hemoglobin 29.7 pg (28.0-32.0); Mean Corpuscular Volume 87.3 fL (80.0-100.0); Nucleated Red Blood Cells % 0.1 %
--- NOTE | 2025-03-03 08:40 | DVHPN2 ---
Reviewed: Care Plan, H&P, Labs, Medications, Previous Orders, Radiology Changes from previous H/P or p: No Changes Objective Vitals Vital Signs Date Time Temp Pulse Resp B/P (MAP) Pulse Ox O2 Delivery O2 Flow Rate FiO2 03/03/25 05:00 98.9 81 20 110/62 (78) 95 98.9 03/02/25 20:00 Room Air* 0 21 Intake/Output Intake and Output 03/03/25 07:00 Intake Total 2230 ml Output Total 3650 ml Balance -1420 ml Intake Oral 1880 ml IV Total 350 ml Output Urine Total 3650 ml # Bowel Movements 1 Medications Current Medications Medications Dose Ordered Sig/Kae Route Start Time Stop Time Status Last Admin Dose Admin Acetaminophen 325 mg Q4HP PRN PO 02/28/25 00:00 Ondansetron HCl 4 mg Q4HP PRN IV 02/28/25 00:00 Docusate Sodium 100 mg BIDPRN PRN PO 02/28/25 00:00 Vancomycin HCl 0 ml @ 0 mls/hr UD IV 02/28/25 01:00 Gabapentin 600 mg TID PO 02/28/25 06:00 03/03/25 05:09 600 MG Cefepime HCl 50 ml @ 12.5 mls/hr Q8H IV 02/28/25 21:00 03/03/25 06:37 12.5 MLS/HR Acetaminophen/ Hydrocodone Bitart 1 tab Q6HP PRN PO 03/01/25 10:15 03/03/25 06:46 1 TAB Vancomycin HCl 250 ml @ 166.667 mls/hr Q12H IV 03/01/25 18:00 Cancel Vancomycin HCl 250 ml @ 166.667 mls/hr Q12H IV 03/02/25 04:00 03/03/25 04:49 166.667 MLS/HR Zolpidem Tartrate 10 mg HSPRN PRN PO 03/01/25 18:30 Laboratory Results Laboratory Tests 02/28/25 09:40 03/03/25 03:00 Urinalysis Test 03/01/25 23:49 Urine Color Light-yellow (Yellow) Urine Clarity Clear (Clear) Urine pH 5.5 (5.0-9.0) Urine Specific [place] 1.015 (1.001-1.035) Urine Protein Negative (Negative) Urine Ketones Negative (Negative) Urine Blood Negative /uL (Negative) Urine Nitrite Negative (Negative) Urine Bilirubin Negative (Negative) Urine Urobilinogen Normal mg/dL (Negative) Urine Leukocyte Esterase Negative /uL (Negative) Urine RBC None seen /hpf (0 - 3) Urine Microscopic WBC 5 /HPF (0-3) H Urine Squamous Epithelial Cells Few /hpf (<5) Urine Bacteria None seen /hpf (None Seen) Urine Glucose Normal mg/dL (Normal) Microbiology Microbiology Date/Time Source Procedure Growth Status 02/28/25 09:40 Blood Blood Culture - Preliminary NO GROWTH AFTER 48 HOURS OF INCUBATION. Resulted 02/28/25 03:15 Leg Gram Stain - Final Resulted 02/28/25 03:15 Wound Culture - Preliminary Escherichia coli - ESBL Proteus mirabilis Resulted Labs and/or images reviewed: Labs reviewed by me, Image(s) reviewed by me Assessment/Plan Assessment/Plan Sepsis secondary to left lower extremity cellulitis Cellulitis left lower extremity: blood cultures negative, wound cultures growing ESBL E coli and Proteus mirabilis, DC vancomycin and cefepime, start Invanz 1 g IV daily for one month, wound consult, podiatric consult for Dr. Pike , he is on vacation this week, no coverage DVT left lower extremity ruled out Peripheral arterial disease left lower extremity ruled out Uncontrolled diabetes type 2 Hypertension Diabetic neuropathy Moderate malnutrition Time spent 50 minutes Advanced care planning time 20 minutes Patient is full code Midline ordered Plan discussed with: Patient Date of Service: Mar 03, 2025 Billing Provider: MURIEL ROTH MD Common Visit Codes: [id number] INP/OBS CARE(HIGH) MURIEL ROTH MD Mar 03, 2025 08:40
[2025-03-03] MEDS: ERTAPENEM SOD INJ 1 GM in SODIUM CHL 0.9% 50 ML IV SCH (10:12)
[2025-03-03 13:10] LABS: COVID19 ANTIGEN SOFIA FIA NEGATIVE (NEGATIVE)
[2025-03-03] MEDS: OXYCODONE W/ ACETAMINOPHEN 5/325MG TABLET PO PRN (14:38)
[2025-03-04 01:00] VITALS: BP 133/56; PULSE 68; RESP 18; TEMP 98.2; O2SAT 97
[2025-03-04 05:00] VITALS: BP 142/85; PULSE 73; RESP 17; TEMP 97.5; O2SAT 97
[2025-03-04 07:45] VITALS: PULSE 82; RESP 18; O2SAT 94
[2025-03-04 09:10] LABS: INR 0.98 (0.9-1.15); Partial Thromboplastin Time 29.5 SEC (24.5-34.5); Prothrombin Time 10.4 sec (9.3-11.8)
--- NOTE | 2025-03-04 09:33 | DVHDS2 ---
Discharge Summary Date of Admission Feb 27, 2025 at 23:51 Date of Discharge: Mar 04, 2025 Admitting Diagnosis Nonhealing left leg wound Wounds: Nonhealing left leg wound Labs/Diagnostic Data: Laboratory Results Test 03/04/25 08:39 03/03/25 10:45 03/03/25 03:00 03/01/25 23:49 Prothrombin Time 10.4 sec (9.3-11.8) Prothrombin Time INR 0.98 (0.9-1.15) Activated Partial Thromboplast Time 29.5 SEC (24.5-34.5) SARS-CoV-2 Antigen (Rapid) Negative (NEGATIVE) White Blood Count 6.9 10^3/uL (4.4-10.8) Red Blood Count 5.01 10^6/uL (4.5-5.90) Hemoglobin 14.9 g/dL (13.5-17.5) Hematocrit 43.7 % (41.0-53.0) Mean Corpuscular Volume 87.3 fL (80.0-100.0) Mean Corpuscular Hemoglobin 29.7 pg (28.0-32.0) Mean Corpuscular Hemoglobin Concent 34.0 g/dL (32.0-36.0) Red Cell Distribution Width 13.8 % (11.8-14.3) Platelet Count 288 10^3/uL (140-450) Mean Platelet Volume 6.5 fL (6.9-10.8) Neutrophils (%) (Auto) 58.2 % (37.0-80.0) Lymphocytes (%) (Auto) 28.5 % (10.0-50.0) Monocytes (%) (Auto) 9.8 % (0.0-12.0) Eosinophils (%) (Auto) 2.8 % (0.0-7.0) Basophils (%) (Auto) 0.7 % (0.0-2.0) Neutrophils # (Auto) 4.0 10 ^3/uL (1.6-8.6) Lymphocytes # (Auto) 2.0 10 ^3/uL (0.4-5.4) Monocytes # (Auto) 0.7 10 ^3/uL (0-1.3) Eosinophils # (Auto) 0.2 10 ^3/uL (0-0.8) Basophils # (Auto) 0 10 ^3/uL (0-0.2) Nucleated Red Blood Cells 0.1 % Creatinine 1.16 mg/dL (0.700-1.30) Glomerular Filtration Rate Calc 71 mL/min (>90) Vancomycin Level Trough 13.6 ug/mL (5-10) Urine Color Light-yellow (Yellow) Urine Clarity Clear (Clear) Urine pH 5.5 (5.0-9.0) Urine Specific [place] 1.015 (1.001-1.035) Urine Protein Negative (Negative) Urine Ketones Negative (Negative) Urine Blood Negative /uL (Negative) Urine Nitrite Negative (Negative) Urine Bilirubin Negative (Negative) Urine Urobilinogen Normal mg/dL (Negative) Urine Leukocyte Esterase Negative /uL (Negative) Urine RBC None seen /hpf (0 - 3) Urine Microscopic WBC 5 /HPF (0-3) Urine Squamous Epithelial Cells Few /hpf (<5) Urine Bacteria None seen /hpf (None Seen) Urine Glucose Normal mg/dL (Normal) Urine Opiates Screen Pos (NEGATIVE) Urine Fentanyl Screen Neg (NEGATIVE) Urine Barbiturates Screen Neg (NEGATIVE) Urine Phencyclidine Screen Neg (NEGATIVE) Urine Amphetamines Screen Pos (NEGATIVE) Urine Benzodiazepines Screen Neg (NEGATIVE) Urine Cocaine Screen Neg (NEGATIVE) Urine Cannabinoids Screen Pos (NEGATIVE) Test 02/28/25 09:40 02/27/25 20:28 02/27/25 19:33 D-Dimer, Quantitative 0.69 mg/L FEU (0.0-0.49) Sodium Level 138 mmol/L (136-145) Potassium Level 4.1 mmol/L (3.5-5.1) Chloride Level 105 mmol/L (98-107) Carbon Dioxide Level 26 mmol/L (20-31) Anion Gap 7 (5-15) Blood Urea Nitrogen 10 mg/dL (9-23) BUN/Creatinine Ratio 9.3 (10.0-20.0) Serum Glucose 132 mg/dL (74-106) Hemoglobin A1c 5.7 % A1C (<5.7) Calcium Level 8.8 mg/dL (8.7-10.4) Total Bilirubin 0.9 mg/dL (0.2-1.0) Aspartate Amino Transferase (AST) 19 U/L (13-40) Alanine Aminotransferase (ALT) 13 U/L (7-40) Alkaline Phosphatase 82 U/L (46-116) Total Protein 7.1 g/dL (5.7-8.2) Albumin 4.0 g/dL (3.2-4.8) Thyroid Stimulating Hormone (TSH) 1.96 uIU/mL (0.55-4.78) Plasma/Serum Blood Alcohol < 3.0 mg/dL (<10) Troponin I High Sensitivity 6 ng/L (</=54) B-Type Natriuretic Peptide 16.49 pg/mL (0-100) Other Laboratory Tests 03/03/25 03:00 02/28/25 09:40 Brief Hx & Hospital Course: 64-year-old male with a history of hypertension came in for nonhealing left lower leg wound. Found to have cellulitis left lower extremity. Wound cultures grew ESBL E coli and Proteus mirabilis vancomycin and cefepime his discontinued and started on Invanz 1 g IV daily for one month wound consult was done. DVT left lower extremity ruled out. Peripheral arterial disease ruled out patient does not have diabetes A1c 5.7 patient is being discharged to [facility] facility to receive IV Invanz for one month plan agreeable with the patient Consults/Reason for consult None Operations or Procedures None Condition at Discharge: Fair Final Diagnosis/Problems List Sepsis secondary to left lower extremity cellulitis Cellulitis left lower extremity: blood cultures negative, wound cultures growing ESBL E coli and Proteus mirabilis, DC vancomycin and cefepime, start Invanz 1 g IV daily for one month, wound consult, podiatric consult for Dr. Pike , he is on vacation this week, no coverage DVT left lower extremity ruled out Peripheral arterial disease left lower extremity ruled out Uncontrolled diabetes type 2 Hypertension Diabetic neuropathy Moderate malnutrition [facility] Discharge Instruct/Medications Diet: Consistent carbohydrate, Cardiac 2g Na,low cholest Activity: Light activity Follow Up/Referral[facility] Medications: Invanz 1 g IV daily for one month see list for other meds Scheduled Ascorbic Acid (Gnp Vitamin C W/Shari Hips), 1,000 MG PO DAILY Carvedilol (Carvedilol), 1 TAB PO BID, (Reported) Cholecalciferol (Vitamin D3 Super Strength), 4,000 UNIT PO DAILY Dexamethasone (Decadron), 4 MG PO DAILY Empagliflozin (Jardiance), 1 TAB PO DAILY, (Reported) Furosemide (Furosemide), 1 TAB PO BID, (Reported) Gabapentin (Gabapentin), 1 CAP PO TID, (Reported) Levofloxacin Hemihydrate (Levofloxacin), 1 TAB PO DAILY Semaglutide (Ozempic), 0.5 MG SC QWEEKLY, (Reported) 39 (Time taken for discharge summary 39 minutes) Discharge Statement: "Patient was advised to return to the ER or call 911 if any headaches, dizziness, shortness of breath, chest pain, abdominal pain, bleeding, fevers, or worsening of medical condition. Patient was counseled about treatment plan, medications, possible side effects, patientverbalized understanding. All questions were answered to the best of my ability. This discharge took greater then 30 minutes in planning, reviewing documentation, counseling the patient, and discussing with other team members." ASSESSMENT ASSESSMENT Hospital Course Uneventful Assessment Sepsis secondary to left lower extremity cellulitis Cellulitis left lower extremity: blood cultures negative, wound cultures growing ESBL E coli and Proteus mirabilis, DC vancomycin and cefepime, start Invanz 1 g IV daily for one month, wound consult, podiatric consult for Dr. Pike , he is on vacation this week, no coverage DVT left lower extremity ruled out Peripheral arterial disease left lower extremity ruled out Uncontrolled diabetes type 2 Hypertension Diabetic neuropathy Moderate malnutrition Date of Service: Mar 04, 2025 Billing Provider: MURIEL ROTH MD Common Visit Codes: [id number] DISCH DAY >30min MURIEL ROTH MD Mar 04, 2025 09:33
[2025-03-04] MEDS ORDERED: LIDOCAINE 1% (LOCAL ANESTH.) PF 5ml SDV ID ONE (11:15)
[2025-03-04 11:29] VITALS: TEMP 36.4
[2025-03-04 12:30] VITALS: BP 154/126; PULSE 74; RESP 18; TEMP 97.7; O2SAT 96
[2025-03-04] MEDS ORDERED: SODIUM CHLOR 0.9% PF (SALINE LOCK) 10ML VIAL/SYR IV SCH (22:00)
== END 2025-03-04 16:30 | DRG 720 ==
LOC: EDBD 19:12 → ER 19:12 → OVERFLOW 23:51 → CENTRAL 02-28 02:15
PROVIDERS: ADMIT Family Medicine; ATTEND Family Medicine
PROC: 02HV33Z Insertion of Infusion Device into Superior Vena Cava, Percutaneous Approach (ICD-10-PCS; principal; 2025-03-04)
PROC: B548ZZA Ultrasonography of Superior Vena Cava, Guidance (ICD-10-PCS; 2025-03-04)
DX: A41.59 Other Gram-negative sepsis (principal); I50.23 Acute on chronic systolic (congestive) heart failure; E44.0 Moderate protein-calorie malnutrition; I13.0 Hypertensive heart and chronic kidney disease with heart failure and stage 1 through stage 4 chronic kidney disease, or unspecified chronic kidney disease; L03.116 Cellulitis of left lower limb; E11.22 Type 2 diabetes mellitus with diabetic chronic kidney disease; B96.20 Unspecified Escherichia coli [E. coli] as the cause of diseases classified elsewhere; E11.40 Type 2 diabetes mellitus with diabetic neuropathy, unspecified; Z20.822 Contact with and (suspected) exposure to COVID-19; Z68.42 Body mass index [BMI] 45.0-49.9, adult; N18.2 Chronic kidney disease, stage 2 (mild); E66.9 Obesity, unspecified; Z16.12 Extended spectrum beta lactamase (ESBL) resistance; Z90.49 Acquired absence of other specified parts of digestive tract; Z82.49 Family history of ischemic heart disease and other diseases of the circulatory system; E11.628 Type 2 diabetes mellitus with other skin complications
CPT/HCPCS: 36415; 36569; 71045; 73700; 76937; 80048; 80053; 80202; 80307; 80320; 81001; 82565; 83036; 83880; 84443; 84484; 85025; 85379; 85610; 85730; 87040; 87077; 87081; 87186; 87205; 87426; 93005; 93306; 93926; 93970; 99291; G0378; J1335